=== PATIENT | female | born 1955 | race Caucasian/White ===

== ENCOUNTER 2017-10-04 20:02 | Inpatient (IN) ==
[2017-10-05] MEDS ORDERED: Naloxone 0.4 MG/ML INJ IVP PRN (03:50)
[2017-10-05] MEDS: Ipratropium/Albuterol Neb 3 ML IH SCH ×4 (04:58→22:00)
[2017-10-05] MEDS: *HR* Heparin 5,000 UNIT/ML VIAL SQ SCH ×2 (05:41→18:20)
[2017-10-05 06:28] LABS: Basophils % 0.3 %; Hematocrit 44.3 % (35.3-44.9); Hemoglobin 14.4 g/dL (11.5-15.4); Immature Granulocytes % 0.9 % (0-4); Immature Platelets 7.8 % (1.1-6.1); Lymphocytes # 1.4 K/mcL (0.6-4.6); Lymphocytes % 18.6 %; Mean Corpuscular HGB Conc 32.5 g/dL (31.6-35.5); Mean Corpuscular Hemoglobin 31.2 pg (28.0-33.3); Mean Corpuscular Volume 95.9 fL (83.0-100.0); Mean Platelet Volume 11.2 fL (9.4-12.4); Monocytes # 0.5 K/mcL (0.0-1.3); Monocytes % 7.2 %; Neutrophils # 5.5 K/mcL (1.6-8.9); Platelet Count 196 K/mcL (140-400); Red Blood Count 4.62 M/mcL (3.82-4.97); Red Cell Distribution Width 15.5 % (11.5-14.5)
[2017-10-05 06:44] LABS: Alanine Aminotransferase 11 Units/L (7-52); Albumin 3.6 g/dL (3.5-5.7); Albumin/Globulin Ratio 1.3 (1.1-2.2); Alkaline Phosphatase 78 Units/L (34-104); Aspartate Amino Transferase 16 Units/L (13-39); BUN/Creatinine Ratio 29 (6-26); Bilirubin,Total 0.4 mg/dL (0.3-1.0); Blood Urea Nitrogen 26 mg/dL (8-23); Calcium 8.5 mg/dL (8.6-10.3); Carbon Dioxide 16 mEq/L (23-29); Chloride 110 mEq/L (98-107); Globulin 2.8 g/dL (2.4-3.5); Glucose 109 mg/dL (70-105); Osmolality,Calculated 289 (280-300); Potassium 3.8 mEq/L (3.5-5.1); Sodium 137 mEq/L (136-145); Total Protein 6.4 g/dL (6.4-8.9); eGFR For African Americans > 60 (> 60); eGFR For Non-African Americans > 60 (> 60)
--- NOTE | 2017-10-05 07:05 | Internal Med History&Physical ---
Date of Encounter: 10/05/17 Time of Encounter: 03:00 Internal Medicine - H&P: HPI Chief complaint: Pericardial effusion Admitted From: Home Plans for Post Hospital Care: Home History of present illness: Ms. Novak is a 62 year old female Patient presented to the emergency room transferred from [place] emergency room after discovering on a CT scan small pericardial effusion about 2.2 cm with no evidence of heart strain. She initially presented to ER because she is feeling increased short of breath, with worsening swelling in her legs. After initial lab work showed negative troponin and it BNP 1364, d-dimer was elevated to 770. CT scan was ordered at that point showing no PE but a 2.2 cm pericardial effusion. His transfer to our hospital for further evaluation and management. Of note her home oxygen requirement is 4 L and she is maintaining saturation on 4 L greater than 95% here. She is a former smoker as well. She denies Fever, chills, nausea, vomiting, and chest pain. Past Med Surg Social Fam HX - Past Medical History Medical history: arthritis, atrial fibrillation, cancer, COPD, GERD, hypertension Additional medical history: lung cancer Psychiatric history: anxiety, depression, panic disorder - Past Surgical History Surgical History: cataract, cholecystectomy Additional surgical history: TONSILLECTOMY. TEETH EXTRACTION. BREAST REDUCTION. lung surgery to remove cancer - Social History Smoking Status: Former smoker Smokeless Tobacco Status: No Alcohol use: none Drug use: none Internal Medicine - H&P: Meds Loratadine [Allergy Relief] 10 mg PO DAILY 07/16/16 [History] Aspirin 81 mg PO DAILY 04/04/17 [History] Cyclobenzaprine [Flexeril] 10 mg PO TID 04/04/17 [History] Metoprolol [Lopressor] 12.5 mg PO BID 04/04/17 [History] Pravastatin Sodium [Pravachol] 20 mg PO DAILY 04/04/17 [History] Topiramate [Topamax] 100 mg PO BID 04/04/17 [History] Lisinopril [Zestril] 10 mg PO DAILY 10/04/17 [History] Albuterol Sulfate [Ventolin Hfa] 2 puff IH Q4H PRN 10/05/17 [History] Gabapentin [Neurontin] 400 mg PO TID 10/05/17 [History] Ibuprofen [Ibu] 800 mg PO TID 10/05/17 [History] Montelukast [Singulair] 10 mg PO DAILY 10/05/17 [History] Omeprazole [PriLOSEC] 20 mg PO DAILY 10/05/17 [History] 3 Allergy/AdvReac Type Severity Reaction Status Date / Time acetaminophen AdvReac Hallucinati Verified 04/04/17 17:06 [From Darvocet-N] ng azithromycin [From Zithromax] AdvReac Rash Verified 04/07/17 07:54 duloxetine [From Cymbalta] AdvReac Nausea Verified 04/04/17 17:06 fentanyl AdvReac Vomiting Verified 04/04/17 17:06 propoxyphene AdvReac Hallucinati Verified 04/04/17 17:06 [From Darvocet-N] ng Sulfa (Sulfonamide AdvReac Rash Verified 04/04/17 17:06 Antibiotics) Tetracycline AdvReac Nausea Verified 04/04/17 17:06 All Systems PM: A 10-system review of systems was performed and is negative for pertinent findings except as documented above in the HPI. - Constitutional Vitals: Temp Pulse Resp BP Pulse Ox 95.8 F L 91 16 128/85 92 10/05/17 04:04 10/05/17 04:04 10/05/17 04:58 10/05/17 04:04 10/05/17 04:58 General appearance: Present: mild distress, A&O X 3 - Head Head exam: Present: normal inspection - Eye Eye exam: Present: EOMI - Respiratory Respiratory exam: Present: rales, respiratory distress. Absent: accessory muscle use - Cardiovascular Cardiovascular exam: Present: RRR. Absent: diastolic murmur, systolic murmur Additional comments: Heart sounds heard and no murmurs heart sounds did not seem distant despite the pericardial effusion - GI/Abdominal GI/Abdominal exam: Present: normal bowel sounds. Absent: firm, tenderness - Extremities Exam Extremities exam: Present: warm, radial pulses palpable and symmetrical. Absent : tenderness - Neurological Exam Neurological exam: Present: oriented X3. Absent: motor sensory deficit, speech deficit - Skin Skin exam: Present: dry, normal color, warm Internal Med - H&P Results - Labs CBC & Chem 7: 10/05/17 05:31 10/05/17 05:31 Labs: Short CBC 06/20/18 Range/Units 05:31 WBC 7.5 (4.3-11.1) K/mcL Hgb 14.4 (11.5-15.4) g/dL Hct 44.3 (35.3-44.9) % Plt Count 196 (140-400) K/mcL Neutrophils # 5.5 (1.6-8.9) K/mcL BMP 10/05/17 05:31 Sodium 137 Potassium 3.8 Chloride 110 H Carbon Dioxide 16 L BUN 26 H Creatinine 0.90 Glucose 109 H Calcium 8.5 L Liver Function 10/05/17 Range/Units 05:31 Total Bilirubin 0.4 (0.3-1.0) mg/dL AST 16 (13-39) Units/L ALT 11 (7-52) Units/L Alkaline Phosphatase 78 (34-104) Units/L Albumin 3.6 (3.5-5.7) g/dL - Assessment and plan (1) COPD exacerbation Current Visit: No Status: Acute Assessment and plan: Patient is a former smoker and has worsening breathing the last 2 days to weeks. She has had a COPD exacerbation in the past she uses oxygen at home currently she is on 4 L and saturating at 94%. Oral Prednisone 40mg for 5 days Breathing treatments with DuoNeb nebs and albuterol Check urine antigens Azithromycin contraindicated due to patient allergy, but might have been beneficial as an anti-inflammatory. (2) Shortness of breath Current Visit: Yes Status: Acute Assessment and plan: likely secondary to COPD exacerbation. Treatment as above. (3) Pericardial effusion Current Visit: No Status: Acute Assessment and plan: As seen on chest CT, measuring 2.2 cm, with no evidence of heart strain. Likely exacerbated by congestive heart failure. Cardiology consult Echocardiogram in AM (4) Elevated brain natriuretic peptide (BNP) level Current Visit: Yes Status: Acute Assessment and plan: Patient's BNP was 1364, she has no previous history of congestive heart failure. Could be related to pericardial effusion, as well as COPD exacerbation. Continue to monitor her oxygen level. Cardiology consult Echocardiogram in AM Anticipate improvement with treatment of COPD exacerbation and pericardial effusion. (5) Hypothermia Current Visit: Yes Status: Acute Assessment and plan: Patient states her normal blood pressure is in the low 96 degrees range, however upon arrival to our facility thermometer indicated her body temperature closer to 92-93. Blankets and taniya-hugger warm air blanket was applied. Patient denies feeling cold, and her temperature was consistent with another thermometer. On exam she did not feel cold to touch. Continue to monitor Continue blankets and Taniya hugger. Qualifiers: Qualified Code(s): T68.XXXA - Hypothermia, initial encounter (6) Hypertension Current Visit: No Status: Chronic Assessment and plan: Chronic continue home medications. Qualifiers: Hypertension type: essential hypertension Qualified Code(s): I10 - Essential (primary) hypertension (7) Hyperlipidemia Current Visit: Yes Status: Acute Assessment and plan: Chronic, continue home meds. Qualifiers: Qualified Code(s): E78.5 - Hyperlipidemia, unspecified - Time Spent With Patient Total time spent is greater than 50% in coordination of care (as documented) at patient's floor/unit and/or counseling patient: Greater than 35 minutes
--- NOTE | 2017-10-05 07:48 | Event Note ---
Date of Encounter: 10/05/17 Time of Encounter: 07:40 Seen and assessed. agree with plan per night time hospitalist. Admitted for shortness of breath and pleural effusion. Continue nebs for COPD, lasix for CHF. F/U 2D echo for pleural effusion. F/U cardiology recs
[2017-10-05] MEDS ORDERED: Furosemide 20 MG/2 ML VIAL IVP SCH (08:00)
[2017-10-05] MEDS ORDERED: Ibuprofen 600 MG TABLET PO PRN (08:03)
[2017-10-05] MEDS ORDERED: Furosemide 40 MG/4 ML VIAL IVP SCH (09:00)
[2017-10-05] MEDS ORDERED: Azithromycin 500 MG in D5% in Water 250 ML IVPB SCH (09:00)
[2017-10-05] MEDS ORDERED: predniSONE 20 MG TABLET PO SCH (09:00)
[2017-10-05] MEDS ORDERED: Levofloxacin 500 MG/100 ML 500 MG/100 ML BAG IVPB SCH (09:00)
[2017-10-05] MEDS: MethylPREDNISolone 40 MG/ML VIAL IVP SCH ×2 (09:13→15:30)
[2017-10-05] MEDS: Gabapentin 400 MG CAPSULE PO SCH ×3 (09:13→22:03)
--- NOTE | 2017-10-05 09:52 | Cardiology Consult Note ---
<Phil Cisneros - Last Filed: 10/05/17 10:27> Date of Encounter: 10/05/17 Time of Encounter: 09:52 Assessment and Plan (1) Elevated brain natriuretic peptide (BNP) level Current Visit: Yes Status: Acute BNP 1364. Presented with worsening dyspnea and LE edema. CXR did not show any CHF or pleural effusions. Chest CTA showed pericardial effusion 2.2cm--often overestimated on CT scans. No prior echo on file. Will obtain TTE to evaluate structure and function and determine if pt has any systolic or diastolic dysfunction noted. Continue IV Lasix 40mg BID. Strict I/Os, Na and fluid restriction, daily weights. Currently being treated for COPD exacerbation as well. Continue to follow until echo results and will make further recs at that time. (2) Pericardial effusion Current Visit: Yes Status: Acute Pericardial effusion 2.[address] Echo to better evaluate size of pericardial effusion. Recommendations pending echo results. BP borderline, but currently appears stable. (3) PAF (paroxysmal atrial fibrillation) Current Visit: Yes Status: Acute Reports hx of A-Fib and states she was started on Xarelto during hospital stay in March. Stopped taking Xarelto due to blood tinged sputum when she would have a productive cough. Upon review, I am unable to locate any EKGs showing pt in A-Fib. All EKGs show SR. Currently SR as well. [id number] is 2 (HTN, Female). Given lack of confirmation of A-Fib, recommend continuing ASA for now. If has episode of documented A-Fib, would then recommend resuming group home anticoagulation. Discussion w patient/family: The assessment and plan as outlined above was discussed with the patient and/or family members who expressed understanding and agreement. All questions were answered. Thank you for involving us in the care of your patient. Please call with any questions. I will discuss all the above with Dr. Hernandez and make changes as necessary. History of Present Illness Consult date: 10/05/17 Consult reason: CHF Chief complaint: Dyspnea, LE edema History of present illness: Ms. Novak is a 62 year old female with PMH of lung cancer s/p resection 3 years ago, COPD on 4L home O2, prior tobacco abuse, GERD, PAF previously on Xarelto that presented to ED as a transfer from [place]. She presented for progressive worsening dyspnea ongoing for the past 6 months, but new onset of LE edema in recent days, left > right. Chest CT showed a pericardial effusion 2.2 cm with no evidence of heart strain. BNP 1364. CXR no pleural effusions. Pt reports she stopped taking Xarelto last month due to blood tinged sputum when she would experience productive cough. She reports chest pain with radiation to bilateral arms, jaw, back and neck, but that it only occurs when coughing. Nonexertional. Troponin negative x 1. Cardiology consulted for further recs. She has been diagnosed with COPD exacerbation and is being treated. Has also been started on IV Lasix 40mg BID. Past Med Surg Social Fam HX - Past Medical History Medical history: arthritis, atrial fibrillation, cancer, COPD, GERD, hypertension Additional medical history: lung cancer Psychiatric history: anxiety, depression, panic disorder - Past Surgical History Surgical History: cataract, cholecystectomy Additional surgical history: TONSILLECTOMY. TEETH EXTRACTION. BREAST REDUCTION. lung surgery to remove cancer - Social History Smoking Status: Former smoker Smokeless Tobacco Status: No Alcohol use: none Drug use: none Medications and Allergies Loratadine [Allergy Relief] 10 mg PO DAILY 07/16/16 [History] Aspirin 81 mg PO DAILY 04/04/17 [History] Cyclobenzaprine [Flexeril] 10 mg PO TID 04/04/17 [History] Metoprolol [Lopressor] 12.5 mg PO BID 04/04/17 [History] Pravastatin Sodium [Pravachol] 20 mg PO DAILY 04/04/17 [History] Topiramate [Topamax] 100 mg PO BID 04/04/17 [History] Lisinopril [Zestril] 10 mg PO DAILY 10/04/17 [History] Albuterol Sulfate [Ventolin Hfa] 2 puff IH Q4H PRN 10/05/17 [History] Gabapentin [Neurontin] 400 mg PO TID 10/05/17 [History] Ibuprofen [Ibu] 800 mg PO TID 10/05/17 [History] Montelukast [Singulair] 10 mg PO DAILY 10/05/17 [History] Omeprazole [PriLOSEC] 20 mg PO DAILY 10/05/17 [History] 3 Allergy/AdvReac Type Severity Reaction Status Date / Time acetaminophen AdvReac Hallucinati Verified 04/04/17 17:06 [From Darvocet-N] ng azithromycin [From Zithromax] AdvReac Rash Verified 04/07/17 07:54 duloxetine [From Cymbalta] AdvReac Nausea Verified 04/04/17 17:06 fentanyl AdvReac Vomiting Verified 04/04/17 17:06 propoxyphene AdvReac Hallucinati Verified 04/04/17 17:06 [From Darvocet-N] ng Sulfa (Sulfonamide AdvReac Rash Verified 04/04/17 17:06 Antibiotics) Tetracycline AdvReac Nausea Verified 04/04/17 17:06 All Systems Review: The remainder of the systems were reviewed and are negative - Cardiovascular Cardiovascular: as per HPI, chest pain at rest, dyspnea at rest, dyspnea on exertion, radiating jaw, neck or arm pain, leg edema - Respiratory Respiratory: cough, dyspnea Physical Examination Vital Signs, Last 4 Hours Temp Pulse Resp BP Pulse Ox 10/05/17 07:33 98.4 F 96 17 99/63 91 Vital Signs Temp Pulse Resp BP Pulse Ox 10/05/17 07:33 98.4 F 96 17 99/63 91 10/05/17 04:58 16 92 10/05/17 04:04 95.8 F L 91 16 128/85 96 10/04/17 22:52 92.9 F L 86 16 97/60 94 10/04/17 22:29 94.1 F L Intake and Output 10/04/17 10/05/17 10/05/17 23:59 07:59 15:59 Intake Total 120 / 120 240 / 240 Output Total 200 / 200 Balance 120 / 120 40 / 40 Intake: Oral 120 / 120 240 / 240 Output: Urine 200 / 200 Other: Meal Breakfast Percent of Meal Consumed 50% # Voids 1 Weight 70.5 kg General: Conversant, No Apparent Distress HEENT: Atraumatic, Normocephaly, Mucus Membranes Moist Neck: Normal carotid pulses Cardiac: Reg Rate and Rhythm, Normal S1 and S2, No Murmur Lungs: Other (diminished) Neuro: Alert and responsive, No focal deficits noted Abdomen: Soft, Non-Tender Skin: No rashes noted on visualized skin Musculoskeletal: No Chest Wall Tenderness Extremities: No Clubbing, No Cyanosis, No Edema, Normal Pulses Results 10/05/17 05:31 10/05/17 05:31 Lab Results 10/05/17 10/05/17 05:31 05:31 WBC 7.5 Hgb 14.4 Hct 44.3 Plt Count 196 Sodium 137 Potassium 3.8 Chloride 110 H Carbon Dioxide 16 L BUN 26 H Creatinine 0.90 Glucose 109 H Calcium 8.5 L Total Bilirubin 0.4 AST 16 ALT 11 Alkaline Phosphatase 78 Short CBC 10/05/17 Range/Units 05:31 WBC 7.5 (4.3-11.1) K/mcL Hgb 14.4 (11.5-15.4) g/dL Hct 44.3 (35.3-44.9) % Plt Count 196 (140-400) K/mcL Neutrophils # 5.5 (1.6-8.9) K/mcL BMP 10/05/17 Range/Units 05:31 Sodium 137 (136-145) mEq/L Potassium 3.8 (3.5-5.1) mEq/L Chloride 110 H (98-107) mEq/L Carbon Dioxide 16 L (23-29) mEq/L BUN 26 H (8-23) mg/dL Creatinine 0.90 (0.60-1.20) mg/dL Glucose 109 H (70-105) mg/dL Calcium 8.5 L (8.6-10.3) mg/dL Liver Function 10/05/17 Range/Units 05:31 Total Bilirubin 0.4 (0.3-1.0) mg/dL AST 16 (13-39) Units/L ALT 11 (7-52) Units/L Alkaline Phosphatase 78 (34-104) Units/L Albumin 3.6 (3.5-5.7) g/dL Active Medications Albuterol Sulfate (Albuterol Inhaler) 2 puff IH Q4HR PRN PRN Reason: Shortness Of Breath/Wheezing Stop: 04/06/18 03:41 Albuterol/Ipratropium (Duoneb) 3 ml IH QIDR ANNAMARIA Stop: 04/06/18 05:01 Last Admin: 10/05/17 04:58 Dose: 3 ml Furosemide (Lasix) 40 mg IVP BIDDIURETIC ANNAMARIA Stop: 04/06/18 09:01 Last Admin: 10/05/17 09:12 Dose: 40 mg Gabapentin (Neurontin) 400 mg PO TID ANNAMARIA Stop: 04/06/18 09:01 Last Admin: 10/05/17 09:13 Dose: 400 mg Heparin Sodium (Porcine) (Heparin) 5,000 unit SQ Q12HR ANNAMARIA Stop: 04/06/18 06:01 Last Admin: 10/05/17 05:41 Dose: 5,000 unit Levofloxacin/Dextrose (Levaquin Premix 500mg/100ml) 500 mg in 100 mls @ 100 mls /hr IVPB Q24H ANNAMARIA PRN Reason: Protocol Stop: 04/06/18 09:01 Last Admin: 10/05/17 09:13 Dose: 100 mls/hr Ibuprofen (Motrin) 800 mg PO TID PRN; Protocol PRN Reason: Pain Stop: 04/06/18 08:04 Methylprednisolone (Solu-Medrol) 40 mg IVP Q8HR ANNAMARIA Stop: 04/06/18 09:01 Last Admin: 10/05/17 09:13 Dose: 40 mg Naloxone HCl (Narcan) 0.4 mg IVP Q2MIN PRN PRN Reason: SEE COMMENTS Stop: 04/06/18 03:51 - EKG Interpretation EKG results cardiology: personally reviewed (SR) Consult Discharge Plan - Plan Referrals: Shruthi Plascencia, JUAN DAVID [Primary Care Provider] - <[email or web address] - Last Filed: 10/05/17 12:55> Date of Encounter: 10/05/17 - Attending Attestation I examined this patient and my medical decision-making was reviewed with the Resident Physician. I agree with the documented findings, disposition and treatment plan. Ms. Novak presents with worsening dyspnea over the last 6 months but now with LE edema. She was ultimately transferred from [facility] for a pericardial effusion seen on CT scan. At the bedside, the patient appears comfortable in no acute distress. She is sitting up watching Facebook on her phone. Blood pressures are borderline but this is not new. She is not hypoxic on oxygen at home. Recommend performing an echo for further evaluation. There does not appear to be any clinical signs of impending tamponade. Recommend cautious use of lasix in this setting. Otherwise reports history of atrial fibrillation in March 2017 when she was started on Xarelto. However, we have found no data documenting demonstration of AFIB at that time. She is currently in NSR. She stopped xarelto on her own a month ago due to blood tinged sputum. Recommend aspirin for now. If there's documentation of AFIB, would consider use of anticoagulants (CHADSVASC 2). Assessment and Plan Discussion w patient/family: The assessment and plan as outlined above was discussed with the patient and/or family members who expressed understanding and agreement. All questions were answered. Thank you for involving us in the care of your patient. Please call with any questions. History of Present Illness History of present illness: Ms. Novak is a 62 year old female All Systems Review: The remainder of the systems were reviewed and are negative Physical Examination Vital Signs, Last 4 Hours Temp Pulse Resp BP Pulse Ox 10/05/17 11:04 18 96 10/05/17 10:49 97.4 F L 98 18 117/76 93 Results 10/05/17 05:31 10/05/17 05:31 Lab Results 10/05/17 10/05/17 05:31 05:31 WBC 7.5 Hgb 14.4 Hct 44.3 Plt Count 196 Sodium 137 Potassium 3.8 Chloride 110 H Carbon Dioxide 16 L BUN 26 H Creatinine 0.90 Glucose 109 H Calcium 8.5 L Total Bilirubin 0.4 AST 16 ALT 11 Alkaline Phosphatase 78
[2017-10-05] MEDS: Loratadine 10 MG TABLET PO SCH (12:07)
--- NOTE | 2017-10-05 13:11 | Internal Med Progress Note ---
Date of Encounter: 10/05/17 Time of Encounter: 13:08 - Assessment and plan (1) COPD exacerbation Current Visit: No Status: Acute Assessment and plan: History of COPD. Former smoker, has worsening shortness of breath over the last 2 weeks. Requires high flow oxygen at home. 4 L nasal cannula at baseline. Also history of lung cancer status post lobectomy. Continue aerosols and IV steroids. Respiratory support when necessary per nasal cannula. CTA chest and chest x-ray with no obvious acute pulmonary process (2) Pericardial effusion Current Visit: Yes Status: Acute Assessment and plan: CTA chest with findings of pericardial effusion 2.2 cm CXR did not show CHF or pleural effusions No prior TTE's, obtain TTE today to evaluate for structural abnormalities and assess for systolic/diastolic dysfunction Continue IV Lasix 40 mg twice a day Strict I's and O's Sodium restriction Fluid restriction 1.5 L daily Daily weights Cardiology following consultation, per sheet recommendations (3) Volume overload Current Visit: Yes Status: Acute Assessment and plan: Presents with volume overload 2 week history of dyspnea, weight gain and bilateral lower extremity swelling 1+ pitting edema bilateral lower extremities BNP elevated at 1364 Chest x-ray did not show any CHF or pleural effusions Continue to treat with IV diuretics TTE now-results pending See further planning above Qualifiers: Hypervolemia type: unspecified Qualified Code(s): E87.70 - Fluid overload, unspecified (4) Shortness of breath Current Visit: Yes Status: Acute Assessment and plan: See above (5) Hypothermia Current Visit: Yes Status: Acute Assessment and plan: Improving Continue to monitor closely Qualifiers: Qualified Code(s): T68.XXXA - Hypothermia, initial encounter (6) Hypertension Current Visit: No Status: Chronic Assessment and plan: History of HTN. BP stable today. Qualifiers: Hypertension type: essential hypertension Qualified Code(s): I10 - Essential (primary) hypertension (7) PAF (paroxysmal atrial fibrillation) Current Visit: Yes Status: Acute Assessment and plan: Paroxysmal A. fib reported per patient Unable to find initial diagnosis of A. fib on chart As patient on Xarelto in the past. Stopped Due to blood-tinged sputum Cardiology seeing in consultation-recommend continuing aspirin for now (8) DVT prophylaxis Current Visit: Yes Status: Acute Assessment and plan: SQ heparin - Time Spent With Patient Total time spent is greater than 50% in coordination of care (as documented) at patient's floor/unit and/or counseling patient: Greater than 35 minutes - Subjective Interval history: Patient seen and examined at bedside today. No acute changes. Continue to have shortness of breath. Shortness of breath is markedly worsened with activity. He is reporting that her story swelling is improving. Denies any chest pain or discomfort with breathing. Has conversational dyspnea. - Constitutional Vitals: Temp Pulse Resp BP Pulse Ox 97.4 F L 98 18 117/76 96 10/05/17 10:49 10/05/17 10:49 10/05/17 11:04 10/05/17 10:49 10/05/17 11:04 General appearance: Present: mild distress, A&O X 3, answers questions appropriately - Head Head exam: Present: atraumatic, normocephalic - Eye Eye exam: Present: EOMI, PERRL, conjuntiva pink, sclera anicteric Pupils: Present: PERRL - Neck Neck exam general surgery: Present: supple, trachea midline. Absent: lymphadenopathy - Respiratory Respiratory exam: Present: accessory muscle use, decreased breath sounds, rales , tachypnea. Absent: chest wall tenderness, rhonchi, wheezes - Cardiovascular Cardiovascular exam: Present: irregular rhythm, +S1, +S2. Absent: diastolic murmur, gallop, rubs, systolic murmur - GI/Abdominal GI/Abdominal exam: Present: normal bowel sounds, soft, no peritoneal signs. Absent: distended, tenderness - Extremities Exam Extremities exam: Present: warm, radial pulses palpable and symmetrical. Absent : calf tenderness, cyanotic, pedal edema - Neurological Exam Neurological exam: Present: alert, CN II-XII intact, oriented X3, no focal deficits. Absent: pronater drift, facial droop, speech deficit - Skin Skin exam: Present: dry, intact Internal Medicine: Result - Labs CBC & Chem 7: 10/05/17 05:31 10/05/17 05:31 Labs: Short CBC 10/05/17 Range/Units 05:31 WBC 7.5 (4.3-11.1) K/mcL Hgb 14.4 (11.5-15.4) g/dL Hct 44.3 (35.3-44.9) % Plt Count 196 (140-400) K/mcL Neutrophils # 5.5 (1.6-8.9) K/mcL BMP 10/05/17 05:31 Sodium 137 Potassium 3.8 Chloride 110 H Carbon Dioxide 16 L BUN 26 H Creatinine 0.90 Glucose 109 H Calcium 8.5 L Liver Function 10/05/17 Range/Units 05:31 Total Bilirubin 0.4 (0.3-1.0) mg/dL AST 16 (13-39) Units/L ALT 11 (7-52) Units/L Alkaline Phosphatase 78 (34-104) Units/L Albumin 3.6 (3.5-5.7) g/dL Consult Discharge Plan - Plan Referrals: Shruthi Plascencia, [facility] [Primary Care Provider] -
--- NOTE | 2017-10-05 15:49 | Event Note ---
Date of Encounter: 10/05/17 Time of Encounter: 15:46 - Cardiology Event Note Echo resulted. LVEF 65%. Normal LV chamber size, wall thickness and function. Mild LVDD. Flattened interventricular septum suggestive of RV pressure-volume overload. Mild to moderately dilated right ventricle with mildly reduced function. Mild TR. Severe pulmonary hypertension. Estimated RVSP is 77-82 mmHg. There is a circumferential pericardial effusion present, which is large along the inferolateral and lateral segments of the LV and small anteriorly. There is no echocardiographic evidence of tamponade. Findings consistent with right sided heart failure. Chest CTA negative for PE. Large pericardial effusion, no evidence of tamponade. Discussed with Dr. Hernandez. Gentle diuresis. Received IV Lasix 40mg this AM. Will order another dose for tomorrow AM. Re-evaluate pt in AM. Plan for Limited TTE Saturday 10/07 to re-evaluate pericardial effusion, or sooner if clinically indicated.
[2017-10-05] MEDS: Ibuprofen 600 MG TABLET PO PRN (22:03)
[2017-10-05] MEDS: Topiramate 100 MG TABLET PO SCH (22:04)
[2017-10-06] MEDS: MethylPREDNISolone 40 MG/ML VIAL IVP SCH ×4 (00:28→23:55)
[2017-10-06] MEDS: Ipratropium/Albuterol Neb 3 ML IH SCH ×4 (04:13→22:48)
[2017-10-06] MEDS: *HR* Heparin 5,000 UNIT/ML VIAL SQ SCH ×2 (05:05→17:10)
[2017-10-06 07:07] LABS: Basophils % 0.1 %; Hematocrit 43.4 % (35.3-44.9); Hemoglobin 13.6 g/dL (11.5-15.4); Immature Granulocytes % 0.5 % (0-4); Lymphocytes # 0.7 K/mcL (0.6-4.6); Lymphocytes % 8.5 %; Mean Corpuscular HGB Conc 31.3 g/dL (31.6-35.5); Mean Corpuscular Hemoglobin 30.8 pg (28.0-33.3); Mean Corpuscular Volume 98.4 fL (83.0-100.0); Mean Platelet Volume 11.3 fL (9.4-12.4); Monocytes # 0.4 K/mcL (0.0-1.3); Monocytes % 4.6 %; Neutrophils # 6.7 K/mcL (1.6-8.9); Platelet Count 163 K/mcL (140-400); Red Blood Count 4.41 M/mcL (3.82-4.97); Red Cell Distribution Width 15.6 % (11.5-14.5); Segmented Neutrophils % 86.3 %
[2017-10-06 07:20] LABS: BUN/Creatinine Ratio 33 (6-26); Blood Urea Nitrogen 31 mg/dL (8-23); Calcium 8.8 mg/dL (8.6-10.3); Carbon Dioxide 25 mEq/L (23-29); Chloride 108 mEq/L (98-107); Glucose 140 mg/dL (70-105); Osmolality,Calculated 297 (280-300); Potassium 3.9 mEq/L (3.5-5.1); Sodium 139 mEq/L (136-145); eGFR For African Americans > 60 (> 60); eGFR For Non-African Americans 60 (> 60)
[2017-10-06] MEDS ORDERED: Furosemide 40 MG/4 ML VIAL IVP ONE (08:00)
[2017-10-06] MEDS: Loratadine 10 MG TABLET PO SCH (08:26)
[2017-10-06] MEDS: Aspirin 81 MG TAB.CHEW PO SCH (08:26)
[2017-10-06] MEDS: Gabapentin 400 MG CAPSULE PO SCH ×3 (08:27→21:27)
[2017-10-06] MEDS: Topiramate 100 MG TABLET PO SCH ×2 (08:32→21:27)
[2017-10-06] MEDS: Ibuprofen 600 MG TABLET PO PRN ×3 (08:41→21:27)
--- NOTE | 2017-10-06 08:59 | Cardiology Progress Note ---
Date of Encounter: 10/06/17 Time of Encounter: 08:00 Assessment and Plan (1) Elevated brain natriuretic peptide (BNP) level Current Visit: Yes Status: Acute *er cardiology: -BNP 1364. Presented with worsening dyspnea and LE edema. -CXR did not show any CHF or pleural effusions. Chest CTA showed pericardial effusion 2.2cm--often overestimated on CT scans. -Echo resulted. LVEF 65%. Normal LV chamber size, wall thickness and function. Mild LVDD. Flattened interventricular septum suggestive of RV pressure-volume overload. Mild to moderately dilated right ventricle with mildly reduced function. Mild TR. Severe pulmonary hypertension. Estimated RVSP is 77-82 mmHg. There is a circumferential pericardial effusion present, which is large along the inferolateral and lateral segments of the LV and small anteriorly. There is no echocardiographic evidence of tamponade. -Findings consistent with right sided heart failure. Chest CTA negative for PE. Large pericardial effusion, no evidence of tamponade. Discussed with Dr. Hernandez. Gentle diuresis. Received IV Lasix 40mg this AM. Will order another dose for tomorrow AM. -Currently net negative 900ml. -Reports shortness of breath and edema improvement. -IV lasix today. -Ban signs stable, not in any acute distress. - Strict I/Os, Na and fluid restriction, daily weights. -Plan for Limited TTE Saturday 10/07 to re-evaluate pericardial effusion, or sooner if clinically indicated. (2) Pericardial effusion Current Visit: Yes Status: Acute Per cardiology: -Pericardial effusion 2.[address] -TTE as above. -Not in any acute distress. Vital signs stable. -Again, plan to repeat limited TTE in am, as above. (3) PAF (paroxysmal atrial fibrillation) Current Visit: Yes Status: Acute Per cardiololgy: -Reports hx of A-Fib and states she was started on Xarelto during hospital stay in March. Stopped taking Xarelto due to blood tinged sputum when she would have a productive cough. -Upon review, I am unable to locate any EKGs showing pt in A-Fib. All EKGs show SR. Currently SR as well. -[id number] is 2 (HTN, Female). Given lack of confirmation of A-Fib, recommend continuing ASA for now. 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 -Telemetry reviewed with no evidence of a.fib overnight, -Will continue to monitor. Discussion w patient/family: The assessment and plan as outlined above was discussed with the patient who expressed understanding and agreement. All questions were answered. Thank you for involving us in the care of your patient. Please call with any questions. Discussed and reviewed with . Subjective Principal diagnosis: pericardial effusion/COPD exacerbation Interval history: Patient reports edema is improved today. Reports breathing is about her baseline. Denies chest pain. Objective Vital Signs, Last 4 Hours Temp Pulse Resp BP Pulse Ox 10/06/17 07:07 97.6 F 81 14 104/70 97 General: Conversant, Other (Conversational dyspnea noted. ) HEENT: Atraumatic, Normocephaly, Mucus Membranes Moist Neck: No JVD, Normal carotid pulses Cardiac: Reg Rate and Rhythm, Normal S1 and S2, No Murmur Lungs: Normal Breath Sounds, No Wheeze, Rales, Rhonchi Neuro: Alert and responsive, No focal deficits noted Abdomen: Soft, Non-Tender Skin: No rashes noted on visualized skin Musculoskeletal: No Chest Wall Tenderness Extremities: No Clubbing, No Cyanosis, Normal Pulses, Other (Mild bilateral pedal edema noted. ) Results 10/06/17 06:32 10/06/17 06:32 Lab Results Impressions Echocardiogram 10/05/17 07:23 Impressions: LVEF 65%. Normal LV chamber size, wall thickness and function. Mild left ventricular diastolic dysfunction. Flattened interventricular septum suggestive of RV pressure-volume overload. Mild to moderately dilated right ventricle with mildly reduced function. Mild tricuspid regurgitation. Severe pulmonary hypertension. Estimated RVSP is 77-82 mmHg. There is a circumferential pericardial effusion present, which is large along the inferolateral and lateral segments of the LV and small anteriorly. There is no echocardiographic evidence of tamponade. Recommend a repeat study as clinically indicated. Left Ventricular Wall Motion: Rest Echo Findings All wall segments showed normal motion. Findings: Study Quality * Technically adequate exam. ECG Findings * Normal sinus rhythm. Left Ventricle * LVEF 65%. * Normal LV chamber size, wall thickness and function. * Mild left ventricular diastolic dysfunction. * Flattened interventricular septum suggestive of RV pressure-volume overload. Right Ventricle * Mildly dilated right ventricle with mildly reduced function. Left Atrium * Mildly dilated left atrium. Right Atrium * Severely dilated right atrium. Aortic Valve * Trileaflet aortic valve. * Mildly sclerotic aortic valve leaflets. * No aortic regurgitation. * No aortic stenosis. Mitral Valve * Normal mitral valve structure and function. * No mitral regurgitation. * No mitral stenosis. Tricuspid Valve * Normal tricuspid valve structure. * Mild tricuspid regurgitation. * Severe pulmonary hypertension. * Estimated RVSP is 77-82 mmHg. * Estimated RA pressure is 5-10 mmHg. Pulmonic Valve * Normal pulmonic valve structure and function. * No pulmonic regurgitation. Aorta * Normally sized aortic root. Pericardium * There is a circumferential pericardial effusion present, which is large along the inferolateral and lateral segments of the LV. It is small anteriorly. * There is no echocardiographic evidence of tamponade. IVC * The IVC is not dilated. * < 50% respiratory change. Pulmonary Artery * Normal visualized portions of the main pulmonary artery. * Pulmonary artery not well visualized. Active Medications Albuterol Sulfate (Albuterol Inhaler) 2 puff IH Q4HR PRN PRN Reason: Shortness Of Breath/Wheezing Stop: 04/06/18 03:41 Albuterol/Ipratropium (Duoneb) 3 ml IH QIDR [facility] Stop: 04/06/18 05:01 Last Admin: 10/06/17 04:13 Dose: 3 ml Aspirin (Aspirin) 81 mg PO DAILY [facility] Stop: 04/07/18 09:01 Last Admin: 10/06/17 08:26 Dose: 81 mg Cyclobenzaprine HCl (Flexeril) 10 mg PO TID [facility] Stop: 04/06/18 15:01 Last Admin: 10/06/17 08:26 Dose: 10 mg Gabapentin (Neurontin) 400 mg PO TID [facility] Stop: 04/06/18 09:01 Last Admin: 10/06/17 08:27 Dose: 400 mg Heparin Sodium (Porcine) (Heparin) 5,000 unit SQ Q12HR [facility] Stop: 04/06/18 06:01 Last Admin: 10/06/17 05:05 Dose: 5,000 unit Ibuprofen (Motrin) 800 mg PO TID PRN; Protocol PRN Reason: Pain Stop: 04/06/18 08:04 Last Admin: 10/06/17 08:41 Dose: 800 mg Loratadine (Claritin) 10 mg PO DAILY [facility] PRN Reason: Protocol Stop: 04/06/18 12:01 Last Admin: 10/06/17 08:26 Dose: 10 mg Methylprednisolone (Solu-Medrol) 40 mg IVP Q8HR [facility] Stop: 04/06/18 09:01 Last Admin: 10/06/17 08:27 Dose: 40 mg Montelukast Sodium (Singulair) 10 mg PO DAILY [facility] Stop: 04/06/18 12:01 Last Admin: 10/06/17 08:26 Dose: 10 mg Naloxone HCl (Narcan) 0.4 mg IVP Q2MIN PRN PRN Reason: SEE COMMENTS Stop: 04/06/18 03:51 Omeprazole (Prilosec) 20 mg PO DAILY [facility] PRN Reason: Protocol Stop: 04/06/18 12:01 Last Admin: 10/06/17 08:27 Dose: 20 mg Simvastatin (Zocor) 10 mg PO DAILY [facility] Stop: 04/07/18 09:01 Last Admin: 10/06/17 08:26 Dose: 10 mg Topiramate (Topamax) 100 mg PO BID [facility] Stop: 04/06/18 21:01 Last Admin: 10/06/17 08:32 Dose: 100 mg Laboratory Tests 10/06/17 10/06/17 06:32 06:32 Hgb 13.6 Potassium 3.9 Creatinine 0.94 - Imaging and Cardiology Chest Xray: report reviewed Echo: report reviewed - EKG Interpretation EKG results cardiology: other (Telemetry reviewed with average HR previous 12 hours noted to be 85, SR. PVCs and PACs noted.) Consult Discharge Plan - Plan Referrals: Shruthi Plascencia CNP [Primary Care Provider] -
--- NOTE | 2017-10-06 10:53 | Internal Med Progress Note ---
Date of Encounter: 10/06/17 Time of Encounter: 10:53 - Assessment and plan (1) COPD exacerbation Current Visit: No Status: Acute Assessment and plan: History of COPD, former smoker, partial lobectomy S/P lung cancer, structural lung disease, requires high flow nasal cannula 4 L at baseline Progressive shortness of breath X2 weeks Having cough and wheezing CXR negative for acute process, CTA chest negative for PE or acute process Also reporting BLE swelling and weight gain Found to have fluid overload; treated with IV diuretics Continue aerosols and IV steroids Respiratory support per nasal cannula, titrate when necessary to maintain SPO2 greater than 88% Titrate oxygen to baseline as tolerated When status improves consider PT/OT consult Consult to nurse navigator as patient may benefit from home health (2) Pericardial effusion Current Visit: Yes Status: Acute Assessment and plan: CTA chest with findings of pericardial effusion 2.2 cm CXR did not show CHF or pleural effusions TTE-There is a circumferential pericardial effusion present, which is large along the inferolateral and lateral segments of the LV and small anteriorly. There is no echocardiographic evidence of tamponade. Continue IV Lasix 40 mg twice a day Strict I's and O's Sodium restriction Fluid restriction 1.5 L daily Daily weights Repeat TTE 10/07/17 Cardiology following consultation, appreciate recommendations (3) Volume overload Current Visit: Yes Status: Acute Assessment and plan: Presents with volume overload 2 week history of dyspnea, weight gain and bilateral lower extremity swelling 1+ pitting edema bilateral lower extremities on admission now generalized edema without pitting BNP elevated at 1364 Chest x-ray did not show any CHF or pleural effusions Continue to treat with IV diuretics TTE-LVEF 65%. Normal LV chamber size, wall thickness and function. Mild LVDD. Flattened interventricular septum suggestive of RV pressure-volume overload. Mild to moderately dilated right ventricle with mildly reduced function. Mild TR. Severe pulmonary hypertension. Estimated RVSP is 77-82 mmHg. There is a circumferential pericardial effusion present, which is large along the inferolateral and lateral segments of the LV and small anteriorly. There is no echocardiographic evidence of tamponade. See further planning above Qualifiers: Hypervolemia type: unspecified Qualified Code(s): E87.70 - Fluid overload, unspecified (4) Shortness of breath Current Visit: Yes Status: Acute Assessment and plan: See above (5) Hypothermia Current Visit: Yes Status: Acute Assessment and plan: Improving No episodes of hypothermia for the last 24 hours Continue to monitor closely Qualifiers: Qualified Code(s): T68.XXXA - Hypothermia, initial encounter (6) Hypertension Current Visit: No Status: Chronic Assessment and plan: History of HTN. BP stable today 10/06/17 Not on anti-HTN medications Qualifiers: Hypertension type: essential hypertension Qualified Code(s): I10 - Essential (primary) hypertension (7) PAF (paroxysmal atrial fibrillation) Current Visit: Yes Status: Acute Assessment and plan: Paroxysmal A. fib reported per patient Unable to find official diagnosis of A. fib on chart review No episodes of A. fib overnight patient on Xarelto in the past. Stopped in March 2017 Due to blood-tinged sputum Cardiology seeing in consultation-recommend continuing aspirin for now Continue telemetry (8) DVT prophylaxis Current Visit: Yes Status: Acute Assessment and plan: Continue SQ heparin - Time Spent With Patient Total time spent is greater than 50% in coordination of care (as documented) at patient's floor/unit and/or counseling patient: 25 - 35 minutes - Subjective Interval history: Patient seen and examined at bedside today. No acute changes. Continues to have shortness of breath above baseline, further exacerbated with activity. She is reporting that her story swelling is continued to improve. Denies any chest pain or discomfort with breathing. Continuing to have conversational dyspnea. - Constitutional Vitals: Temp Pulse Resp BP Pulse Ox 97.6 F 81 14 104/70 97 10/06/17 07:07 10/06/17 07:07 10/06/17 07:07 10/06/17 07:07 10/06/17 07:07 General appearance: Present: mild distress, A&O X 3, answers questions appropriately - Head Head exam: Present: atraumatic, normocephalic - Eye Eye exam: Present: EOMI, PERRL, conjuntiva pink, sclera anicteric Pupils: Present: PERRL - Neck Neck exam general surgery: Present: supple, trachea midline. Absent: lymphadenopathy - Respiratory Respiratory exam: Present: decreased breath sounds, CTAB, prolonged expiratory phase, respiratory distress, tachypnea. Absent: accessory muscle use, chest wall tenderness, rales, rhonchi, wheezes - Cardiovascular Cardiovascular exam: Present: RRR, +S1, +S2. Absent: diastolic murmur, gallop, rubs, systolic murmur - GI/Abdominal GI/Abdominal exam: Present: normal bowel sounds, soft, no peritoneal signs. Absent: distended, tenderness - Extremities Exam Extremities exam: Present: normal capillary refill, normal inspection, warm, radial pulses palpable and symmetrical. Absent: calf tenderness, cyanotic, pedal edema Additional comments: BLE swelling improving, generalized no longer 1+ pitting - Neurological Exam Neurological exam: Present: CN II-XII intact, oriented X3, no focal deficits. Absent: pronater drift, facial droop, speech deficit - Skin Skin exam: Present: dry, intact Internal Medicine: Result - Labs CBC & Chem 7: 10/06/17 06:32 10/06/17 06:32 Labs: Short CBC 10/06/17 Range/Units 06:32 WBC 7.8 (4.3-11.1) K/mcL Hgb 13.6 (11.5-15.4) g/dL Hct 43.4 (35.3-44.9) % Plt Count 163 (140-400) K/mcL Neutrophils # 6.7 (1.6-8.9) K/mcL BMP 10/06/17 06:32 Sodium 139 Potassium 3.9 Chloride 108 H Carbon Dioxide 25 BUN 31 H Creatinine 0.94 Glucose 140 H Calcium 8.8 - Impressions Impressions Echocardiogram 10/05/17 07:23 Impressions: LVEF 65%. Normal LV chamber size, wall thickness and function. Mild left ventricular diastolic dysfunction. Flattened interventricular septum suggestive of RV pressure-volume overload. Mild to moderately dilated right ventricle with mildly reduced function. Mild tricuspid regurgitation. Severe pulmonary hypertension. Estimated RVSP is 77-82 mmHg. There is a circumferential pericardial effusion present, which is large along the inferolateral and lateral segments of the LV and small anteriorly. There is no echocardiographic evidence of tamponade. Recommend a repeat study as clinically indicated. Left Ventricular Wall Motion: Rest Echo Findings All wall segments showed normal motion. Findings: Study Quality * Technically adequate exam. ECG Findings * Normal sinus rhythm. Left Ventricle * LVEF 65%. * Normal LV chamber size, wall thickness and function. * Mild left ventricular diastolic dysfunction. * Flattened interventricular septum suggestive of RV pressure-volume overload. Right Ventricle * Mildly dilated right ventricle with mildly reduced function. Left Atrium * Mildly dilated left atrium. Right Atrium * Severely dilated right atrium. Aortic Valve * Trileaflet aortic valve. * Mildly sclerotic aortic valve leaflets. * No aortic regurgitation. * No aortic stenosis. Mitral Valve * Normal mitral valve structure and function. * No mitral regurgitation. * No mitral stenosis. Tricuspid Valve * Normal tricuspid valve structure. * Mild tricuspid regurgitation. * Severe pulmonary hypertension. * Estimated RVSP is 77-82 mmHg. * Estimated RA pressure is 5-10 mmHg. Pulmonic Valve * Normal pulmonic valve structure and function. * No pulmonic regurgitation. Aorta * Normally sized aortic root. Pericardium * There is a circumferential pericardial effusion present, which is large along the inferolateral and lateral segments of the LV. It is small anteriorly. * There is no echocardiographic evidence of tamponade. IVC * The IVC is not dilated. * < 50% respiratory change. Pulmonary Artery * Normal visualized portions of the main pulmonary artery. * Pulmonary artery not well visualized. Consult Discharge Plan - Plan Referrals: Shruthi Plascencia, JUAN DAVID [Primary Care Provider] -
[2017-10-06] MEDS: Furosemide 40 MG/4 ML VIAL IVP SCH (15:59)
[2017-10-07] MEDS: Ipratropium/Albuterol Neb 3 ML IH SCH ×4 (04:02→22:56)
[2017-10-07 04:56] LABS: Basophils % 0.1 %; Hematocrit 43.4 % (35.3-44.9); Immature Granulocytes % 0.5 % (0-4); Lymphocytes # 0.7 K/mcL (0.6-4.6); Mean Corpuscular HGB Conc 32.3 g/dL (31.6-35.5); Mean Corpuscular Hemoglobin 31.2 pg (28.0-33.3); Mean Corpuscular Volume 96.7 fL (83.0-100.0); Mean Platelet Volume 11.2 fL (9.4-12.4); Monocytes # 0.5 K/mcL (0.0-1.3); Monocytes % 4.3 %; Neutrophils # 9.6 K/mcL (1.6-8.9); Platelet Count 176 K/mcL (140-400); Red Blood Count 4.49 M/mcL (3.82-4.97); Red Cell Distribution Width 15.7 % (11.5-14.5); Segmented Neutrophils % 89.1 %
[2017-10-07 05:16] LABS: BUN/Creatinine Ratio 32 (6-26); Blood Urea Nitrogen 31 mg/dL (8-23); Calcium 8.5 mg/dL (8.6-10.3); Carbon Dioxide 27 mEq/L (23-29); Chloride 103 mEq/L (98-107); Glucose 186 mg/dL (70-105); Osmolality,Calculated 297 (280-300); Potassium 3.7 mEq/L (3.5-5.1); Sodium 138 mEq/L (136-145); eGFR For African Americans > 60 (> 60); eGFR For Non-African Americans 59 (> 60)
[2017-10-07] MEDS: *HR* Heparin 5,000 UNIT/ML VIAL SQ SCH ×2 (06:24→17:02)
[2017-10-07 06:31] LABS: INR 1.1; Prothrombin Time 11.3 Seconds (9.4-12.1)
--- NOTE | 2017-10-07 07:59 | Internal Med Progress Note ---
Date of Encounter: 10/07/17 Time of Encounter: 08:00 - Assessment and plan (1) Pericardial effusion Current Visit: Yes Status: Acute Assessment and plan: CTA chest with findings of pericardial effusion 2.2 cm CXR did not show CHF or pleural effusions TTE-There is a circumferential pericardial effusion present, which is large along the inferolateral and lateral segments of the LV and small anteriorly. There is no echocardiographic evidence of tamponade. Continue IV Lasix 40 mg twice a day Strict I's and O's Sodium restriction Fluid restriction 1.5 L daily Daily weights Repeat TTE 10/07/17 per cardiology recs Cardiology following consultation, appreciate recommendations (2) COPD exacerbation Current Visit: No Status: Acute Assessment and plan: History of COPD, former smoker, partial lobectomy S/P lung cancer, structural lung disease, requires high flow nasal cannula 4 L at baseline Progressive shortness of breath X2 weeks Having cough and wheezing CXR negative for acute process, CTA chest negative for PE or acute process Continue nebs and steroids (3) Hypertension Current Visit: No Status: Chronic Assessment and plan: History of HTN. BP stable today 10/06/17 Not on anti-HTN medications Qualifiers: Hypertension type: essential hypertension Qualified Code(s): I10 - Essential (primary) hypertension (4) Hypothermia Current Visit: Yes Status: Acute Assessment and plan: Improving No episodes of hypothermia for the last 24 hours Continue to monitor closely Qualifiers: Encounter type: subsequent encounter Qualified Code(s): T68.XXXD - Hypothermia, subsequent encounter (5) Shortness of breath Current Visit: Yes Status: Acute Assessment and plan: See above (6) PAF (paroxysmal atrial fibrillation) Current Visit: Yes Status: Acute Assessment and plan: Paroxysmal A. fib reported per patient Unable to find official diagnosis of A. fib on chart review No episodes of A. fib overnight patient on Xarelto in the past. Stopped in March 2017 Due to blood-tinged sputum Cardiology seeing in consultation-recommend continuing aspirin for now Continue telemetry (7) DVT prophylaxis Current Visit: Yes Status: Acute Assessment and plan: Continue SQ heparin (8) Volume overload Current Visit: Yes Status: Acute Assessment and plan: Presents with volume overload 2 week history of dyspnea, weight gain and bilateral lower extremity swelling 1+ pitting edema bilateral lower extremities on admission now generalized edema without pitting BNP elevated at 1364 Chest x-ray did not show any CHF or pleural effusions Continue to treat with IV diuretics TTE-LVEF 65%. Normal LV chamber size, wall thickness and function. Mild LVDD. Flattened interventricular septum suggestive of RV pressure-volume overload. Mild to moderately dilated right ventricle with mildly reduced function. Mild TR. Severe pulmonary hypertension. Estimated RVSP is 77-82 mmHg. There is a circumferential pericardial effusion present, which is large along the inferolateral and lateral segments of the LV and small anteriorly. There is no echocardiographic evidence of tamponade. See further planning above Qualifiers: Hypervolemia type: unspecified Qualified Code(s): E87.70 - Fluid overload, unspecified - Time Spent With Patient Total time spent is greater than 50% in coordination of care (as documented) at patient's floor/unit and/or counseling patient: - Subjective Interval history: No acute events overnight - Constitutional Vitals: Temp Pulse Resp BP Pulse Ox 97.4 F L 88 16 113/71 97 10/07/17 04:10/07/17 04:10/07/17 04:10/07/17 04:10/07/17 04:09 General appearance: Present: mild distress, A&O X 3, answers questions appropriately - Head Head exam: Present: atraumatic, normocephalic - Eye Eye exam: Present: PERRL, conjuntiva pink, sclera anicteric Pupils: Present: PERRL - Neck Neck exam general surgery: Present: supple, trachea midline. Absent: lymphadenopathy - Respiratory Respiratory exam: Present: CTAB. Absent: accessory muscle use, rales, rhonchi, wheezes - Cardiovascular Cardiovascular exam: Present: RRR, +S1, +S2. Absent: diastolic murmur, gallop, rubs, systolic murmur - GI/Abdominal GI/Abdominal exam: Present: normal bowel sounds, soft, no peritoneal signs. Absent: distended, tenderness - Extremities Exam Extremities exam: Present: warm, radial pulses palpable and symmetrical. Absent : calf tenderness, cyanotic, pedal edema Additional comments: 2+ pitting edema - Neurological Exam Neurological exam: Present: CN II-XII intact, oriented X3, no focal deficits. Absent: pronater drift, facial droop, speech deficit - Skin Skin exam: Present: dry, intact Internal Medicine: Result - Labs CBC & Chem 7: 10/07/17 04:26 10/07/17 04:26 Labs: Short CBC 10/07/17 Range/Units 04:26 WBC 10.8 (4.3-11.1) K/mcL Hgb 14.0 (11.5-15.4) g/dL Hct 43.4 (35.3-44.9) % Plt Count 176 (140-400) K/mcL Neutrophils # 9.6 H (1.6-8.9) K/mcL BMP 10/07/17 04:26 Sodium 138 Potassium 3.7 Chloride 103 Carbon Dioxide 27 BUN 31 H Creatinine 0.96 Glucose 186 H Calcium 8.5 L - ABG Interpretation ABG results: PT/INR, D-dimer PT 11.3 Seconds (9.4-12.1) 10/07/17 05:49 Consult Discharge Plan - Plan Referrals: Shruthi Plascecnia, NANOFABRICATION SPECIALIST [Primary Care Provider] -
[2017-10-07] MEDS: Furosemide 40 MG/4 ML VIAL IVP SCH (08:40)
[2017-10-07] MEDS: Loratadine 10 MG TABLET PO SCH (08:45)
[2017-10-07] MEDS: Aspirin 81 MG TAB.CHEW PO SCH (08:45)
[2017-10-07] MEDS: Topiramate 100 MG TABLET PO SCH ×2 (08:46→21:11)
[2017-10-07] MEDS: Gabapentin 400 MG CAPSULE PO SCH ×3 (08:46→21:11)
[2017-10-07] MEDS: MethylPREDNISolone 40 MG/ML VIAL IVP SCH (08:58)
[2017-10-07] MEDS ORDERED: predniSONE 20 MG TABLET PO SCH (09:00)
--- NOTE | 2017-10-07 09:07 | Cardiology Progress Note ---
Date of Encounter: 10/07/17 Time of Encounter: 08:30 Assessment and Plan (1) Elevated brain natriuretic peptide (BNP) level Current Visit: Yes Status: Acute *er cardiology: -BNP 1364. Presented with worsening dyspnea and LE edema. -CXR did not show any CHF or pleural effusions. Chest CTA showed pericardial effusion 2.2cm--often overestimated on CT scans. -Echo resulted. LVEF 65%. Normal LV chamber size, wall thickness and function. Mild LVDD. Flattened interventricular septum suggestive of RV pressure-volume overload. Mild to moderately dilated right ventricle with mildly reduced function. Mild TR. Severe pulmonary hypertension. Estimated RVSP is 77-82 mmHg. There is a circumferential pericardial effusion present, which is large along the inferolateral and lateral segments of the LV and small anteriorly. There is no echocardiographic evidence of tamponade. -Currently net negative 4000ml. -Reports shortness of breath and edema improvement. -Ban signs stable, not in any acute distress. -Limited TTE pending today. - Strict I/Os, Na and fluid restriction, daily weights. -Further recommendations pending TTE. -Will hold IV lasix for now (net negative 4000ml), will give recommendations for lasix pending TTE. (2) Pericardial effusion Current Visit: Yes Status: Acute Per cardiology: -Pericardial effusion 2.[address] -TTE as above. -Not in any acute distress. Vital signs stable. -Again, plan to repeat limited TTE in am, as above. (3) PAF (paroxysmal atrial fibrillation) Current Visit: Yes Status: Acute Per cardiololgy: -Reports hx of A-Fib and states she was started on Xarelto during hospital stay in March. Stopped taking Xarelto due to blood tinged sputum when she would have a productive cough. -Upon review, I am unable to locate any EKGs showing pt in A-Fib. All EKGs show SR. Currently SR as well. -[id number] is 2 (HTN, Female). Given lack of confirmation of A-Fib, recommend continuing ASA for now. If has episode of documented A-Fib, would then recommend resuming terminal system operator anticoagulation. -Telemetry reviewed with no evidence of a.fib. -Will continue to monitor. Discussion w patient/family: The assessment and plan as outlined above was discussed with the patient who expressed understanding and agreement. All questions were answered. Thank you for involving us in the care of your patient. Please call with any questions. Discussed and reviewed with . Subjective Principal diagnosis: pericardial effusion/COPD exacerbation Interval history: Patient reports edema is resolved. Patient states breathing is about baseline. Currently laying flat. Objective Vital Signs, Last 4 Hours Temp Pulse Resp BP Pulse Ox 10/07/17 08:00 97.4 F L 87 18 99/63 92 General: Conversant, No Apparent Distress HEENT: Atraumatic, Normocephaly, Mucus Membranes Moist Neck: No JVD, Normal carotid pulses Cardiac: Reg Rate and Rhythm, Normal S1 and S2, No Murmur Lungs: Other (Lung sounds dimished to bilateral lower lobes. ) Neuro: Alert and responsive, No focal deficits noted Abdomen: Soft, Non-Tender Skin: No rashes noted on visualized skin Musculoskeletal: No Chest Wall Tenderness Extremities: No Clubbing, No Cyanosis, No Edema, Normal Pulses Results 10/07/17 04:26 10/07/17 04:26 Lab Results Active Medications Albuterol Sulfate (Albuterol Inhaler) 2 puff IH Q4HR PRN PRN Reason: Shortness Of Breath/Wheezing Stop: 04/06/18 03:41 Albuterol/Ipratropium (Duoneb) 3 ml IH QIDR ANNAMARIA Stop: 04/06/18 05:01 Last Admin: 10/07/17 04:02 Dose: Not Given Aspirin (Aspirin) 81 mg PO DAILY ANNAMARIA Stop: 04/07/18 09:01 Last Admin: 10/07/17 08:45 Dose: 81 mg Cyclobenzaprine HCl (Flexeril) 10 mg PO TID ANNAMARIA Stop: 04/06/18 15:01 Last Admin: 10/07/17 08:46 Dose: 10 mg Furosemide (Lasix) 40 mg IVP BIDDIURETIC ANNAMARIA Stop: 04/07/18 17:01 Last Admin: 10/07/17 08:40 Dose: Not Given Gabapentin (Neurontin) 400 mg PO TID ANNAMARIA Stop: 04/06/18 09:01 Last Admin: 10/07/17 08:46 Dose: 400 mg Heparin Sodium (Porcine) (Heparin) 5,000 unit SQ Q12HR ANNAMARIA Stop: 04/06/18 06:01 Last Admin: 10/07/17 06:24 Dose: Not Given Ibuprofen (Motrin) 800 mg PO TID PRN; Protocol PRN Reason: Pain Stop: 04/06/18 08:04 Last Admin: 10/06/17 21:27 Dose: 800 mg Loratadine (Claritin) 10 mg PO DAILY ANNAMARIA PRN Reason: Protocol Stop: 04/06/18 12:01 Last Admin: 10/07/17 08:45 Dose: 10 mg Montelukast Sodium (Singulair) 10 mg PO DAILY ANNAMARIA Stop: 04/06/18 12:01 Last Admin: 10/07/17 08:46 Dose: 10 mg Naloxone HCl (Narcan) 0.4 mg IVP Q2MIN PRN PRN Reason: SEE COMMENTS Stop: 04/06/18 03:51 Omeprazole (Prilosec) 20 mg PO DAILY ANNAMARIA PRN Reason: Protocol Stop: 04/06/18 12:01 Last Admin: 10/07/17 08:46 Dose: 20 mg Prednisone (Prednisone) 40 mg PO DAILY [facility] Stop: 04/08/18 09:01 Last Admin: 10/07/17 08:46 Dose: 40 mg Simvastatin (Zocor) 10 mg PO DAILY ANNAMARIA Stop: 04/07/18 09:01 Last Admin: 10/07/17 08:46 Dose: 10 mg Topiramate (Topamax) 100 mg PO BID [facility] Stop: 04/06/18 21:01 Last Admin: 10/07/17 08:46 Dose: 100 mg Laboratory Tests 10/07/17 10/07/17 04:26 04:26 Hgb 14.0 Creatinine 0.96 - Imaging and Cardiology Chest Xray: report reviewed Echo: pending, report reviewed - EKG Interpretation EKG results cardiology: other (Telemetry reviewed with average HR previous 12 hours noted to be 94, SR. PVCs, couplets, and PACs noted.) Consult Discharge Plan - Plan Referrals: Shruthi Plascencia, JUAN DAVID [Primary Care Provider] -
[2017-10-07] MEDS: Ibuprofen 600 MG TABLET PO PRN ×2 (14:52→22:25)
[2017-10-08] MEDS: Ipratropium/Albuterol Neb 3 ML IH SCH ×5 (03:34→20:08)
[2017-10-08 05:29] LABS: Basophils % 0.2 %; Eosinophils % 0.2 %; Hemoglobin 13.7 g/dL (11.5-15.4); Immature Granulocytes % 0.4 % (0-4); Lymphocytes # 2.2 K/mcL (0.6-4.6); Lymphocytes % 19.9 %; Mean Corpuscular HGB Conc 31.1 g/dL (31.6-35.5); Mean Corpuscular Hemoglobin 30.4 pg (28.0-33.3); Mean Corpuscular Volume 97.8 fL (83.0-100.0); Mean Platelet Volume 11.4 fL (9.4-12.4); Monocytes # 1.1 K/mcL (0.0-1.3); Monocytes % 9.9 %; Neutrophils # 7.7 K/mcL (1.6-8.9); Platelet Count 173 K/mcL (140-400); Red Cell Distribution Width 15.7 % (11.5-14.5); Segmented Neutrophils % 69.4 %
[2017-10-08 05:46] LABS: BUN/Creatinine Ratio 40 (6-26); Blood Urea Nitrogen 27 mg/dL (8-23); Calcium 8.4 mg/dL (8.6-10.3); Carbon Dioxide 27 mEq/L (23-29); Chloride 106 mEq/L (98-107); Glucose 131 mg/dL (70-105); Osmolality,Calculated 293 (280-300); Potassium 3.3 mEq/L (3.5-5.1); Sodium 138 mEq/L (136-145); eGFR For African Americans > 60 (> 60); eGFR For Non-African Americans > 60 (> 60)
[2017-10-08] MEDS: *HR* Heparin 5,000 UNIT/ML VIAL SQ SCH ×2 (06:29→17:15)
[2017-10-08] MEDS ORDERED: Potassium Chloride Elixir 20 MEQ/15 ML UDC PO ONE (07:49)
--- NOTE | 2017-10-08 08:00 | Discharge Summary ---
Orders not resulted at time of discharge: Pending orders 10/08/17 07:49 POC Urinalysis [POC] Routine 10/09/17 04:00 Basic Metabolic Panel AM 0400 CBC [Complete Blood Count] [HEME] AM 0400 10/10/17 04:00 Basic Metabolic Panel AM 0400 CBC [Complete Blood Count] [HEME] AM 0400 10/11/17 04:00 Basic Metabolic Panel AM 0400 CBC [Complete Blood Count] [HEME] AM 0400 Date of Encounter: 10/08/17 Time of Encounter: 07:50 - Discharge Diagnosis (1) Pericardial effusion Priority: Primary Status: Acute (2) COPD exacerbation Priority: Primary Status: Acute (3) Hypertension Status: Chronic Qualifiers: Hypertension type: essential hypertension Qualified Code(s): I10 - Essential (primary) hypertension (4) Hypothermia Status: Acute Qualifiers: Encounter type: subsequent encounter Qualified Code(s): T68.XXXD - Hypothermia, subsequent encounter (5) Shortness of breath Status: Acute (6) PAF (paroxysmal atrial fibrillation) Status: Acute (7) DVT prophylaxis Status: Acute (8) Volume overload Status: Acute Qualifiers: Hypervolemia type: unspecified Qualified Code(s): E87.70 - Fluid overload, unspecified Hospital course: Ms. Novak is a 62 year old female - Time Spent with Patient Total time spent providing and/or coordinating discharge services: - Discharge Medications Prescriptions: predniSONE [PredniSONE] 40 mg PO DAILY #5 tablet Home Medications: Loratadine [Allergy Relief] 10 mg PO DAILY 07/16/16 [History] Aspirin 81 mg PO DAILY 04/04/17 [History] Cyclobenzaprine [Flexeril] 10 mg PO TID 04/04/17 [History] Metoprolol [Lopressor] 12.5 mg PO BID 04/04/17 [History] Pravastatin Sodium [Pravachol] 20 mg PO DAILY 04/04/17 [History] Topiramate [Topamax] 100 mg PO BID 04/04/17 [History] Lisinopril [Zestril] 10 mg PO DAILY 10/04/17 [History] Albuterol Sulfate [Ventolin Hfa] 2 puff IH Q4H PRN 10/05/17 [History] Gabapentin [Neurontin] 400 mg PO TID 10/05/17 [History] Ibuprofen [Ibu] 800 mg PO TID 10/05/17 [History] Montelukast [Singulair] 10 mg PO DAILY 10/05/17 [History] Omeprazole [PriLOSEC] 20 mg PO DAILY 10/05/17 [History] Furosemide [Lasix] 40 mg PO BID #60 tab 10/08/17 [Rx] predniSONE [PredniSONE] 40 mg PO DAILY #5 tablet 10/08/17 [Rx] Allergies/Adverse Reactions: 3 Allergy/AdvReac Type Severity Reaction Status Date / Time acetaminophen AdvReac Hallucinati Verified 04/04/17 17:06 [From Darvocet-N] ng azithromycin [From Zithromax] AdvReac Rash Verified 04/07/17 07:54 duloxetine [From Cymbalta] AdvReac Nausea Verified 04/04/17 17:06 fentanyl AdvReac Vomiting Verified 04/04/17 17:06 propoxyphene AdvReac Hallucinati Verified 04/04/17 17:06 [From Darvocet-N] ng Sulfa (Sulfonamide AdvReac Rash Verified 04/04/17 17:06 Antibiotics) Tetracycline AdvReac Nausea Verified 04/04/17 17:06 Date of admission: 10/05/17 03:50 Primary care physician: Shruthi Plascencia Consults: 10/05/17 03:40 Consult to Nurse Navigator [CONS] Routine Comment: 10/05/17 06:08 Consult to Cardiology [CONS] Routine Comment: Consulting Provider: Cardiology Sarah Reason for Consult: Pericardial effusion, no heart strain. Call Completed: No 10/08/17 07:28 Consult to Wooden Frame Builder [CONS] Routine Reason for SW Consult: Would like a home health aide to help with ADL's at home. She does not drive. - Constitutional Vitals: Temp Pulse Resp BP Pulse Ox 97.4 F L 84 22 100/60 97 10/08/17 07:03 10/08/17 07:03 10/08/17 07:03 10/08/17 07:03 10/08/17 07:03 General appearance: Present: mild distress, A&O X 3, answers questions appropriately - Head Head exam: Present: atraumatic, normocephalic - Eye Eye exam: Present: PERRL, conjuntiva pink, sclera anicteric Pupils: Present: PERRL - Neck Neck exam general surgery: Present: supple, trachea midline. Absent: lymphadenopathy - Respiratory Respiratory exam: Present: CTAB. Absent: accessory muscle use, rales, rhonchi, wheezes - Cardiovascular Cardiovascular exam: Present: RRR, +S1, +S2. Absent: diastolic murmur, gallop, rubs, systolic murmur - GI/Abdominal GI/Abdominal exam: Present: normal bowel sounds, soft, no peritoneal signs. Absent: distended, tenderness - Extremities Exam Extremities exam: Present: warm, radial pulses palpable and symmetrical. Absent : calf tenderness, cyanotic, pedal edema - Neurological Exam Neurological exam: Present: CN II-XII intact, oriented X3, no focal deficits. Absent: pronater drift, facial droop, speech deficit - Skin Skin exam: Present: dry, intact - Discharge Instructions Follow Up With: Shruthi Plascencia CNP [Primary Care Provider] -
--- NOTE | 2017-10-08 08:05 | Internal Med Progress Note ---
Date of Encounter: 10/08/17 Time of Encounter: 08:00 - Assessment and plan (1) COPD exacerbation Current Visit: No Status: Acute Assessment and plan: History of COPD, former smoker, partial lobectomy S/P lung cancer, structural lung disease with pulmonary fibrosis, requires high flow nasal cannula 4 L at baseline Progressive shortness of breath X2 weeks Having cough and wheezing CXR negative for acute process, CTA chest negative for PE or acute process Pt continues to have increased oxygen demand, desaturating to 75 % on 4L , continue nebs, steroids and antibiotics. obtain ABG. Pulm recs appreciated. Repeat xray today (2) Acute and chronic respiratory failure with hypoxia Current Visit: Yes Status: Acute Assessment and plan: See management for COPD (3) Acute right heart failure Current Visit: Yes Status: Acute Assessment and plan: ECho shows evidence of RV volume overload. Continue IV lasix. Repeat xray today (4) Pericardial effusion Current Visit: Yes Status: Acute Assessment and plan: CTA chest with findings of pericardial effusion 2.2 cm CXR did not show CHF or pleural effusions TTE-There is a circumferential pericardial effusion present, which is large along the inferolateral and lateral segments of the LV and small anteriorly. There is no echocardiographic evidence of tamponade. Continue IV Lasix 40 mg twice a day Strict I's and O's Sodium restriction Fluid restriction 1.5 L daily Daily weights Repeat TTE on 10/07/17 shows no evidence of tamponade. Cardiology will follow as an outpatient and repeat TTE (5) Hypertension Current Visit: No Status: Chronic Assessment and plan: History of HTN. BP stable today 10/06/17 Not on anti-HTN medications Qualifiers: Hypertension type: essential hypertension Qualified Code(s): I10 - Essential (primary) hypertension (6) Shortness of breath Current Visit: Yes Status: Acute Assessment and plan: See above (7) PAF (paroxysmal atrial fibrillation) Current Visit: Yes Status: Acute Assessment and plan: Paroxysmal A. fib reported per patient Unable to find official diagnosis of A. fib on chart review No episodes of A. fib overnight patient on Xarelto in the past. Stopped in March 2017 Due to blood-tinged sputum Cardiology seeing in consultation-recommend continuing aspirin for now Continue telemetry (8) DVT prophylaxis Current Visit: Yes Status: Acute Assessment and plan: Continue SQ heparin (9) Volume overload Current Visit: Yes Status: Acute Assessment and plan: Presents with volume overload 2 week history of dyspnea, weight gain and bilateral lower extremity swelling 1+ pitting edema bilateral lower extremities on admission now generalized edema without pitting BNP elevated at 1364 Chest x-ray did not show any CHF or pleural effusions Continue to treat with IV diuretics TTE-LVEF 65%. Normal LV chamber size, wall thickness and function. Mild LVDD. Flattened interventricular septum suggestive of RV pressure-volume overload. Mild to moderately dilated right ventricle with mildly reduced function. Mild TR. Severe pulmonary hypertension. Estimated RVSP is 77-82 mmHg. There is a circumferential pericardial effusion present, which is large along the inferolateral and lateral segments of the LV and small anteriorly. There is no echocardiographic evidence of tamponade. See further planning above Qualifiers: Hypervolemia type: unspecified Qualified Code(s): E87.70 - Fluid overload, unspecified (10) Acute on chronic respiratory failure with hypoxia and hypercapnia Current Visit: Yes Status: Acute - Time Spent With Patient Total time spent is greater than 50% in coordination of care (as documented) at patient's floor/unit and/or counseling patient: - Subjective Interval history: No acute events overnight - Constitutional Vitals: Temp Pulse Resp BP Pulse Ox 97.4 F L 84 22 100/60 97 10/08/17 07:03 10/08/17 07:03 10/08/17 07:03 10/08/17 07:03 10/08/17 07:03 General appearance: Present: mild distress, A&O X 3, answers questions appropriately - Head Head exam: Present: atraumatic, normocephalic - Eye Eye exam: Present: PERRL, conjuntiva pink, sclera anicteric Pupils: Present: PERRL - Neck Neck exam general surgery: Present: supple, trachea midline. Absent: lymphadenopathy - Respiratory Respiratory exam: Present: CTAB. Absent: accessory muscle use, rales, rhonchi, wheezes Additional comments: crepitus in lung bases bilaterally - Cardiovascular Cardiovascular exam: Present: RRR, +S1, +S2. Absent: diastolic murmur, gallop, rubs, systolic murmur - GI/Abdominal GI/Abdominal exam: Present: normal bowel sounds, soft, no peritoneal signs. Absent: distended, tenderness - Extremities Exam Extremities exam: Present: warm, radial pulses palpable and symmetrical. Absent : calf tenderness, cyanotic, pedal edema - Neurological Exam Neurological exam: Present: CN II-XII intact, oriented X3, no focal deficits. Absent: pronater drift, facial droop, speech deficit - Skin Skin exam: Present: dry, intact Internal Medicine: Result - Labs CBC & Chem 7: 10/08/17 04:41 10/08/17 04:41 Labs: Short CBC 10/08/17 Range/Units 04:41 WBC 11.1 (4.3-11.1) K/mcL Hgb 13.7 (11.5-15.4) g/dL Hct 44.0 (35.3-44.9) % Plt Count 173 (140-400) K/mcL Neutrophils # 7.7 (1.6-8.9) K/mcL BMP 10/08/17 04:41 Sodium 138 Potassium 3.3 L Chloride 106 Carbon Dioxide 27 BUN 27 H Creatinine 0.68 Glucose 131 H Calcium 8.4 L - ABG Interpretation ABG results: PT/INR, D-dimer PT 11.3 Seconds (9.4-12.1) 10/07/17 05:49 - Impressions Impressions Echocardiogram Limited Views 10/07/17 08:00 Impressions: There is a circumferential pericardial effusion which is large along the inferolateral and lateral segments and small anteriorly. No Echo evidence for tamponade. No significant change when compared to TTE 10/05/2017. LVEF 60-65%. RV is dilated and hypokinetic. IV septum is flattened predominately during diastole suggesting RV volume overload. Left Ventricular Wall Motion: Rest Echo Findings All wall segments showed normal motion. Findings: Study Quality * Technically adequate exam. ECG Findings * Possible atrial flutter. Left Ventricle * LVEF 60-65%. * Normal LV chamber size, wall thickness and function. Right Ventricle * RV is dilated and hypokinetic. Pericardium * There is a circumferential pericardial effusion which is large along the inferolateral and lateral segments and small anteriorly. IVC * Normal IVC dimensions and inspiratory collapse. Consult Discharge Plan - Plan Referrals: Shruthi Plascencia, JUAN DAVID [Primary Care Provider] - (Please follow up as schedule...) Prescriptions: Furosemide [Lasix] 40 mg PO BID #60 tab predniSONE [PredniSONE] 40 mg PO DAILY #5 tablet
--- NOTE | 2017-10-08 08:12 | Pulmonology Consult Note ---
Date of Encounter: 10/08/17 Time of Encounter: 08:12 Assessment and Plan (1) Acute and chronic respiratory failure with hypoxia Current Visit: Yes Status: Acute In conclusion Ms. Novak is a very pleasant 62-year-old woman with a past medical history of COPD lung cancer status post resection and pulmonary fibrosis. She presented with acute on chronic respiratory failure noted to have a pericardial effusion. Since admission she is undergoing diuresis with somewhat improvement in her symptoms but she still feeling significantly short of breath with persistent hypoxemia higher than her baseline of 4 L. I had the chance to review her CT scan echocardiogram and pulmonary function testing. My overall concern for this patient is that she is presenting with a worsening RV dysfunction/failure secondary to pulmonary hypertension. Although it is very difficult to classify her with group 1 disease that is pulmonary arterial hypertension I have a high suspicion that this is the case with likely contributions from group 2 pulmonary venous hypertension from mild diastolic dysfunction and group 3 pulmonary hypertension secondary to chronic hypoxemia from lung etiology vis-a-vis ILD and COPD. my overall Gestalt at this point is that the patient is likely suffering from chronic inflammatory arthritis which is manifested as both pulmonary fibrosis and likely PAH. Leading suspicion is that she likely suffers from rheumatoid arthritis or process possibly rheumatoid arthritis overlap syndrome with scleroderma. Unfortunately presentation of pericardial effusion secondary to pulmonary arterial hypertension is a a relatively late manifestation of the disease and is a harbinger of poor prognosis. Alternatively but considered less likely as it her pulmonary hypertension is just related to underlying interstitial lung disease and COPD. I do not think that her RV dysfunction represents volume overload from left heart disease given the echocardiogram results. I have also discussed the case extensively with the primary embedded engineer Dr. Kulkarni and reviewed her echocardiogram with him and he is in conclusion that there is not strong evidence of left heart disease here. The patient screens negative for sleep-disordered breathing and this is not suspected based upon physical examination Although she suffers from COPD it is equivocal whether or not she is experiencing exacerbation at this time I tend to favor that that she is not however she has been started on steroids which may be reasonable treatment if for no other reason than from the severity of her joint pains. Radiographically I do not see evidence for recurrence of lung cancer at this time. Nor is there clear evidence of pulmonary infection. Recs: -Continue supplemental oxygen to keep saturation greater than 88%. I suspect that the increased oxygen requirement the patient is suffering from is likely a manifestation of worsening cardiopulmonary status in general and this may reflect a new normal for her. - Hold further aggressive IV diuresis her blood pressure is borderline and there is a real possibility of precipitating cardiogenic shock with overdiuresis. It would be reasonable to start a daily diuretic dose such as 20 mg of Lasix by mouth. The degree of her lower extremity swelling is related to cor pulmonale and not left-sided heart failure -I have ordered basic rheumatological panel on an urgent basis; she is also be evaluated for cirrhosis and HIV -Continue scheduled bronchodilators -Transition to by mouth steroids prednisone 40 mg daily is reasonable with planned to de-escalate over the next 2 weeks -I had a nita conversation with the patient I suspect that she would need transfer to a tertiary referral center for right heart catheterization and evaluation of initiation of vasodilator therapy/prostaglandin infusion on an urgent basis if this ends up being a manifestation of PAH given the degree of right ventricular dysfunction and recent clinical decline. Somewhat encouragingly there is no evidence of renal dysfunction. She is amenable to transfer -Prognosis at this time remains guarded -Pulmonary will continue to follow thank you for this consultation (2) Pulmonary hypertension Current Visit: Yes Status: Acute (3) Pulmonary fibrosis Current Visit: Yes Status: Acute (4) COPD with exacerbation Current Visit: Yes Status: Acute (5) Pericardial effusion Current Visit: Yes Status: Acute (6) (HFpEF) heart failure with preserved ejection fraction Current Visit: Yes Status: Acute History of Present Illness Consult date: 10/08/17 Requesting physician: Halley Mayo Reason for consult: hypoxemia Chief complaint: Difficulty in breathing History of present illness: This is a pleasant 62-year-old woman with a past medical history of COPD and heart failure with preserved ejection fraction. She initially presented to the emergency room at [facility] for shortness of breath and worsening larks are swelling. Labs were notable on admission for elevated BNP to greater than 1000 she also had a positive d-dimer to 770 a CTA of the chest was performed which was negative for PE but the showed a 2.2 cm pericardial effusion she was transferred to [facility] for further evaluation. Since being here she is requiring increased oxygen from her baseline 4 L. The patient was seen by cardiology felt that she was in heart failure and she is been aggressively diuresed over 4 L since admission. The echocardiogram on this admission was negative for pericardial tamponade but noted to preserved ejection fraction but severe pulmonary hypertension including dilated RV that was hypokinetic and IV septum that was flattened predominantly during diastole suggesting RV volume overload. to 10/05/2017 Pulmonary was consulted because of continued need for increased oxygen requirement despite treatment for her heart failure. She states that she has had increased shortness of breath over the last couple of days prior to admission to the hospital but has noticed significant decline over the last 6 months with regards to her shortness of breath. Was troubling her the most was bilateral lower extremity swelling which is really become severe to the point that her feet felt like she had "a clubfoot" she is also noticed a lifelong arthritis primarily in her hands but is also noted in her knees as well. In fact prior to admission to hospital she noted redness of her joints of her hands and they were excruciatingly painful From a pulmonary standpoint she is a former smoker of one pack a day for approximately 47 years but quit approximately 6 months ago She is status post left upper lobectomy for lung cancer. She said evidence of pulmonary fibrosis without complete evaluation on CT scan in 2017 as well as on CTA on this admission. PFTs are notable for restrictive physiology along with a markedly reduced DLCO. Past Med Surg Social Fam HX - Past Medical History Medical history: arthritis, atrial fibrillation, cancer, COPD, GERD, hypertension Additional medical history: lung cancer Psychiatric history: anxiety, depression, panic disorder - Past Surgical History Surgical History: cataract, cholecystectomy Additional surgical history: TONSILLECTOMY. TEETH EXTRACTION. BREAST REDUCTION. lung surgery to remove cancer - Social History Smoking Status: Former smoker Smokeless Tobacco Status: No Alcohol use: none Drug use: none Medications and Allergies Loratadine [Allergy Relief] 10 mg PO DAILY 07/16/16 [History] Aspirin 81 mg PO DAILY 04/04/17 [History] Cyclobenzaprine [Flexeril] 10 mg PO TID 04/04/17 [History] Metoprolol [Lopressor] 12.5 mg PO BID 04/04/17 [History] Pravastatin Sodium [Pravachol] 20 mg PO DAILY 04/04/17 [History] Topiramate [Topamax] 100 mg PO BID 04/04/17 [History] Lisinopril [Zestril] 10 mg PO DAILY 10/04/17 [History] Albuterol Sulfate [Ventolin Hfa] 2 puff IH Q4H PRN 10/05/17 [History] Gabapentin [Neurontin] 400 mg PO TID 10/05/17 [History] Ibuprofen [Ibu] 800 mg PO TID 10/05/17 [History] Montelukast [Singulair] 10 mg PO DAILY 10/05/17 [History] Omeprazole [PriLOSEC] 20 mg PO DAILY 10/05/17 [History] Furosemide [Lasix] 40 mg PO BID #60 tab 10/08/17 [Rx] predniSONE [PredniSONE] 40 mg PO DAILY #5 tablet 10/08/17 [Rx] 3 Allergy/AdvReac Type Severity Reaction Status Date / Time acetaminophen AdvReac Hallucinati Verified 04/04/17 17:06 [From Darvocet-N] ng azithromycin [From Zithromax] AdvReac Rash Verified 04/07/17 07:54 duloxetine [From Cymbalta] AdvReac Nausea Verified 04/04/17 17:06 fentanyl AdvReac Vomiting Verified 04/04/17 17:06 propoxyphene AdvReac Hallucinati Verified 04/04/17 17:06 [From Darvocet-N] ng Sulfa (Sulfonamide AdvReac Rash Verified 04/04/17 17:06 Antibiotics) Tetracycline AdvReac Nausea Verified 04/04/17 17:06 All Systems: The remainder of the systems were reviewed and are negative Physical Examination Vital Signs: Vital Signs, Last 4 Hours Temp Pulse Resp BP Pulse Ox 10/08/17 07:03 97.4 F L 84 22 100/60 97 General appearance: no acute distress Eyes: nonicteric ENT: oropharynx moist Mallampati (class): 1 Neck: supple, JVD Effort: normal Auscultation: bilateral: rales (Velcro inspiratory crackles bilaterally) Cardiovascular: regular rate and rhythm Gastrointestinal: normoactive bowel sounds, soft, non-tender Integumentary: other (Tapering of the skin of her digits) Extremities: no cyanosis, other (Clubbing noted) Musculoskeletal: joint inflammation, joint tenderness normal mental status, non-focal exam mood appropriate Results - Laboratory Findings CBC and BMP: 10/08/17 04:41 10/08/17 04:41 PT/INR, D-dimer PT 11.3 Seconds (9.4-12.1) 10/07/17 05:49 Abnormal lab findings: Abnormal lab results MCHC 31.1 g/dL (31.6-35.5) L 10/08/17 04:41 RDW 15.7 % (11.5-14.5) H 10/08/17 04:41 Immature Plt Fraction 7.8 % (1.1-6.1) H 10/05/17 05:31 Potassium 3.3 mEq/L (3.5-5.1) L 10/08/17 04:41 BUN 27 mg/dL (8-23) H 10/08/17 04:41 BUN/Creatinine Ratio 40 (6-26) H 10/08/17 04:41 Glucose 131 mg/dL (70-105) H 10/08/17 04:41 Calcium 8.4 mg/dL (8.6-10.3) L 10/08/17 04:41 - Microbiology Findings Microbiology Findings: Microbiology, Last 48 Hours 10/06/17 19:10 Legionella Antigen - Final Urine,Clean Catch Streptococcus pneumoniae Antigen (M - Final - Diagnostic Findings Chest x-ray: report reviewed, image reviewed CT scan - chest: report reviewed, image reviewed PFT's: report reviewed, image reviewed - Clinical Findings Intake & Output: Intake & Output 10/07/17 10/08/17 10/08/17 23:59 07:59 15:59 Intake Total 300 / 300 Output Total 1200 / 1200 450 / 450 Balance -900 / -900 -450 / -450 Weight 70.4 kg Consult Discharge Plan - Plan Referrals: Shruthi Plascencia, JUAN DAVID [Primary Care Provider] - (Please follow up as schedule...) Prescriptions: Furosemide [Lasix] 40 mg PO BID #60 tab predniSONE [PredniSONE] 40 mg PO DAILY #5 tablet
[2017-10-08] MEDS: Budesonide/Formoterol 160/4.5 MDI IH SCH ×2 (08:24→20:08)
[2017-10-08 08:42] LABS: ABG Base Excess 4 mEq/L (-2 to 3); ABG HCO3 31 mEq/L (21-27); ABG Oxygen Saturation 80 % (95-98); ABG PCO2 54 mmHg (35-45); ABG PH 7.36 pH Units (7.32-7.45); ABG PO2 47 mmHg (85-104); ABG TCO2 32 mEq/L (20-26)
[2017-10-08] MEDS ORDERED: Furosemide 40 MG/4 ML VIAL IVP SCH ×2 (09:00)
[2017-10-08] MEDS: methylPREDNISolone 125 MG/2 ML VIAL IVP SCH ×3 (10:05→23:38)
[2017-10-08] MEDS: Ibuprofen 600 MG TABLET PO PRN ×2 (10:07→16:15)
[2017-10-08] MEDS: Aspirin 81 MG TAB.CHEW PO SCH (10:07)
[2017-10-08] MEDS: Gabapentin 400 MG CAPSULE PO SCH ×3 (10:07→20:56)
[2017-10-08] MEDS: Topiramate 100 MG TABLET PO SCH ×2 (10:07→20:57)
[2017-10-08] MEDS: Loratadine 10 MG TABLET PO SCH (10:07)
[2017-10-08] MEDS: Levofloxacin 750 MG/150 ML 750 MG/150 ML BAG IVPB SCH (10:08)
[2017-10-08 11:51] LABS: Bilirubin,Urine Negative (Negative); Blood,Urine Negative (Negative); Clarity,Urine Clear (Clear); Color,Urine Yellow (Yellow); Glucose,Urine (UA) Normal (Normal); Ketones,Urine Negative (Negative); Leukocyte Esterase,Urine Small (Negative); Nitrite,Urine Negative (Negative); PH,Urine 6.5 pH Units (5.0-8.0); Protein,Urine Negative (Neg-Trace); Specific Gravity,Urine 1.015 (1.010-1.025); Urobilinogen,Urine Normal (Normal)
[2017-10-08 11:52] LABS: Bacteria,Urine None Seen per hpf (None-Few); Hyaline Casts,Urine None Seen per lpf (None-Few); Squamous Epithelial Cell,Urine Many per lpf (None-Few); WBC,Urine 0-3 per hpf (0-3)
[2017-10-08 12:04] LABS: RBC,Urine 0-3 per hpf (0-3)
[2017-10-08] MEDS: Ibuprofen 800 MG TABLET PO PRN (23:38)
[2017-10-09] MEDS: Ipratropium/Albuterol Neb 3 ML IH SCH ×7 (00:11→23:08)
[2017-10-09 03:52] LABS: Basophils % 0.1 %; Hematocrit 48.7 % (35.3-44.9); Immature Granulocytes % 0.8 % (0-4); Lymphocytes # 0.6 K/mcL (0.6-4.6); Lymphocytes % 6.3 %; Mean Corpuscular HGB Conc 31.6 g/dL (31.6-35.5); Mean Corpuscular Hemoglobin 30.9 pg (28.0-33.3); Mean Corpuscular Volume 97.8 fL (83.0-100.0); Mean Platelet Volume 11.7 fL (9.4-12.4); Monocytes # 0.4 K/mcL (0.0-1.3); Monocytes % 4.5 %; Neutrophils # 7.9 K/mcL (1.6-8.9); Platelet Count 180 K/mcL (140-400); Red Blood Count 4.98 M/mcL (3.82-4.97); Red Cell Distribution Width 15.4 % (11.5-14.5); Segmented Neutrophils % 88.3 %
[2017-10-09 03:54] LABS: Hemoglobin 15.4 g/dL (11.5-15.4)
[2017-10-09 04:08] LABS: BUN/Creatinine Ratio 31 (6-26); Blood Urea Nitrogen 25 mg/dL (8-23); Calcium 8.7 mg/dL (8.6-10.3); Carbon Dioxide 22 mEq/L (23-29); Chloride 105 mEq/L (98-107); Glucose 166 mg/dL (70-105); Osmolality,Calculated 286 (280-300); Potassium 4.5 mEq/L (3.5-5.1); Sodium 134 mEq/L (136-145); eGFR For African Americans > 60 (> 60); eGFR For Non-African Americans > 60 (> 60)
[2017-10-09] MEDS: *HR* Heparin 5,000 UNIT/ML VIAL SQ SCH ×2 (05:24→17:42)
--- NOTE | 2017-10-09 06:51 | Pulmonology Progress Note ---
Date of Encounter: 10/09/17 Time of Encounter: 06:51 Assessment and Plan (1) Acute and chronic respiratory failure with hypoxia Current Visit: Yes Status: Acute This 62-year-old woman who presented with acute on chronic respiratory failure with evidence of right heart failure and pericardial effusion She has CT evidence of pulmonary fibrosis history of COPD and lung cancer. She also presented with worsening joint pain and clinical decline including severely diminished exercise capacity such that she is unable to walk from the couch to the kitchen to cook a meal. Her rheumatoid factor is checked yesterday is >120. Impression: Acute on Chronic Hypoxic Respiratory Failure Pulmonary Hypertension suspected PAH from CTD complicated by chronic hypoxia from ILD and COPD. NYHA III Right Heart Failure Suspected Rheumatoid Arthritis with acute flare ILD suspected UIP s/t CT (RA) COPD History Lung CA s/p Resection and appears in radiographic remission Recs: -Cont PO Diuretic -strict I/Os -By mouth steroids 30 mg prednisone with plan to taper -Scheduled bronchodiladtors -Doubt infection Stop ABx -Rheumatoid factor elevated we will follow-up on remaining inflammatory serologies (VITO, aCCP etc) -She appears to be reaching euvolemic status recommend transfer to tertiary referral center ([facility]) for urgent evaluation of pulmonary arterial hypertension. I personally discussed this case with baseball hand sewer and pulmonary hypertension expert at [facility] Dr Marilin Edwards. Transfer can be arranged tomorrow (10/10). Recommend social work/caseworker evaluation of this case prior to transfer. Patient agreeable to transfer (2) Pulmonary hypertension Current Visit: Yes Status: Acute (3) Pulmonary fibrosis Current Visit: Yes Status: Acute (4) Right heart failure due to pulmonary hypertension Current Visit: Yes Status: Acute Subjective Principal diagnosis: pericardial effusion/COPD exacerbation Interval history: Overnight no acute events. She was in had another 2 L negative. Was started on antibiotics per primary service. Says her oxygen requirements and dyspnea are unchanged. She is on 6 L nasal cannula with saturation in the mid 90s Objective PUL Vital signs: Last Vital Signs Temp 97.7 F 10/09/17 05:35 Pulse 82 10/09/17 05:35 Resp 17 10/09/17 05:35 BP 108/66 10/09/17 05:35 Pulse Ox 95 10/09/17 05:35 General appearance: no acute distress Eyes: nonicteric ENT: oropharynx moist Neck: supple Auscultation: bilateral: rales Cardiovascular: regular rate and rhythm Gastrointestinal: normoactive bowel sounds, soft, non-tender Extremities: edema (b/l 1+ LE edema ) normal mental status, non-focal exam mood appropriate Results - Laboratory Findings CBC and BMP: 10/09/17 03:17 10/09/17 03:17 ABG ABG pH 7.36 pH Units (7.32-7.45) 10/08/17 08:23 ABG pCO2 54 mmHg (35-45) H 10/08/17 08:23 ABG pO2 47 mmHg (85-104) L* 10/08/17 08:23 ABG O2 Saturation 80 % (95-98) L 10/08/17 08:23 PT/INR, D-dimer PT 11.3 Seconds (9.4-12.1) 10/07/17 05:49 Abnormal lab findings: Abnormal lab results RBC 4.98 M/mcL (3.82-4.97) H 10/09/17 03:17 Hct 48.7 % (35.3-44.9) H 10/09/17 03:17 RDW 15.4 % (11.5-14.5) H 10/09/17 03:17 Immature Plt Fraction 7.8 % (1.1-6.1) H 10/05/17 05:31 ABG pCO2 54 mmHg (35-45) H 10/08/17 08:23 ABG pO2 47 mmHg (85-104) L* 10/08/17 08:23 ABG HCO3 31 mEq/L (21-27) H 10/08/17 08:23 ABG Total CO2 32 mEq/L (20-26) H 10/08/17 08:23 ABG O2 Saturation 80 % (95-98) L 10/08/17 08:23 ABG Base Excess 4 mEq/L (-2 to 3) H 10/08/17 08:23 Sodium 134 mEq/L (136-145) L 10/09/17 03:17 Carbon Dioxide 22 mEq/L (23-29) L 10/09/17 03:17 BUN 25 mg/dL (8-23) H 10/09/17 03:17 BUN/Creatinine Ratio 31 (6-26) H 10/09/17 03:17 Glucose 166 mg/dL (70-105) H 10/09/17 03:17 Ur Leukocyte Esterase Small (Negative) H 10/08/17 11:00 Ur Squamous Epith Cells Many per lpf (None-Few) H 10/08/17 11:00 Rheumatoid Factor > 120 IU/mL (Less than 14) H 10/08/17 10:30 - Clinical Findings Intake & Output: Intake & Output 10/08/17 10/08/17 10/09/17 15:59 23:59 07:59 Intake Total 600 / 600 120 / 120 Output Total 1300 / 1300 925 / 925 600 / 600 Balance -700 / -700 -805 / -805 -600 / -600 Weight 70.5 kg Consult Discharge Plan - Plan Referrals: Shruthi Plascencia, DITCH [employer]ER [Primary Care Provider] - (Please follow up as schedule...) Prescriptions: Furosemide [Lasix] 40 mg PO BID #60 tab predniSONE [PredniSONE] 40 mg PO DAILY #5 tablet
[2017-10-09] MEDS: Budesonide/Formoterol 160/4.5 MDI IH SCH ×2 (07:39→20:19)
[2017-10-09] MEDS: Levofloxacin 750 MG/150 ML 750 MG/150 ML BAG IVPB SCH (07:41)
[2017-10-09] MEDS: methylPREDNISolone 125 MG/2 ML VIAL IVP SCH (07:41)
[2017-10-09] MEDS: Gabapentin 400 MG CAPSULE PO SCH ×3 (07:42→19:57)
[2017-10-09] MEDS: Furosemide 20 MG TABLET PO SCH ×2 (07:42→07:50)
[2017-10-09] MEDS: Ibuprofen 800 MG TABLET PO PRN ×3 (07:42→23:59)
[2017-10-09] MEDS: Loratadine 10 MG TABLET PO SCH (07:42)
[2017-10-09] MEDS: Topiramate 100 MG TABLET PO SCH ×2 (07:42→19:57)
[2017-10-09] MEDS: Aspirin 81 MG TAB.CHEW PO SCH (07:42)
--- NOTE | 2017-10-09 07:47 | Internal Med Progress Note ---
Date of Encounter: 10/09/17 Time of Encounter: 07:45 - Assessment and plan (1) Acute right heart failure Current Visit: Yes Status: Acute Assessment and plan: ECho shows evidence of RV volume overload. Seen by pulmonary. Think etiology may be 2/2 to severe pulmonary hypertension with superimposed connective tissue disease. Being worked uop for rheumatoid arthritis,connective tissue disease, follow up rheumatoid, scleroderma studies, will obtain HIV and ultrasound of liver to rule out cirrhosis. Iv lasix discontinued and switched to PO. Patient may need transfer to a tertiary center for right heart cath and initiation of vasodilator/prostaglandin. Continue to follow pulm recs. (2) COPD exacerbation Current Visit: No Status: Acute Assessment and plan: History of COPD, former smoker, partial lobectomy S/P lung cancer, structural lung disease with pulmonary fibrosis, requires high flow nasal cannula 4 L at baseline Progressive shortness of breath X2 weeks Having cough and wheezing CXR negative for acute process, CTA chest negative for PE or acute process Pt continues to have increased oxygen demand, desaturating to 75 % on 4L , continue nebs, steroids and antibiotics. obtain ABG. Pulm recs appreciated. Repeat xray today (3) Acute and chronic respiratory failure with hypoxia Current Visit: Yes Status: Acute Assessment and plan: See management for COPD (4) Pericardial effusion Current Visit: Yes Status: Acute Assessment and plan: CTA chest with findings of pericardial effusion 2.2 cm CXR did not show CHF or pleural effusions TTE-There is a circumferential pericardial effusion present, which is large along the inferolateral and lateral segments of the LV and small anteriorly. There is no echocardiographic evidence of tamponade. Continue po lasix Strict I's and O's Sodium restriction Fluid restriction 1.5 L daily Daily weights Repeat TTE on 10/07/17 shows no evidence of tamponade. Cardiology will follow as an outpatient and repeat TTE Pericardial effusion may be related to rheumatologic disorder per pulmonary, see mgmt for acute right heart failye (5) Hypertension Current Visit: No Status: Chronic Assessment and plan: History of HTN. BP stable today 10/06/17 Not on anti-HTN medications Qualifiers: Hypertension type: essential hypertension Qualified Code(s): I10 - Essential (primary) hypertension (6) Shortness of breath Current Visit: Yes Status: Acute Assessment and plan: See above (7) PAF (paroxysmal atrial fibrillation) Current Visit: Yes Status: Acute Assessment and plan: Paroxysmal A. fib reported per patient Unable to find official diagnosis of A. fib on chart review No episodes of A. fib overnight patient on Xarelto in the past. Stopped in March 2017 Due to blood-tinged sputum Cardiology seeing in consultation-recommend continuing aspirin for now Continue telemetry (8) DVT prophylaxis Current Visit: Yes Status: Acute Assessment and plan: Continue SQ heparin (9) Volume overload Current Visit: Yes Status: Acute Assessment and plan: Presents with volume overload 2 week history of dyspnea, weight gain and bilateral lower extremity swelling 1+ pitting edema bilateral lower extremities on admission now generalized edema without pitting BNP elevated at 1364 Chest x-ray did not show any CHF or pleural effusions Continue to treat with IV diuretics TTE-LVEF 65%. Normal LV chamber size, wall thickness and function. Mild LVDD. Flattened interventricular septum suggestive of RV pressure-volume overload. Mild to moderately dilated right ventricle with mildly reduced function. Mild TR. Severe pulmonary hypertension. Estimated RVSP is 77-82 mmHg. There is a circumferential pericardial effusion present, which is large along the inferolateral and lateral segments of the LV and small anteriorly. There is no echocardiographic evidence of tamponade. See further planning above Qualifiers: Hypervolemia type: unspecified Qualified Code(s): E87.70 - Fluid overload, unspecified - Time Spent With Patient Total time spent is greater than 50% in coordination of care (as documented) at patient's floor/unit and/or counseling patient: - Subjective Interval history: No acute events overnight - Constitutional Vitals: Temp Pulse Resp BP Pulse Ox 97.6 F 86 18 97/62 95 10/09/17 07:09 10/09/17 07:09 10/09/17 07:39 10/09/17 07:09 10/09/17 07:39 General appearance: Present: mild distress, A&O X 3, answers questions appropriately - Head Head exam: Present: atraumatic, normocephalic - Eye Eye exam: Present: PERRL, conjuntiva pink, sclera anicteric Pupils: Present: PERRL - Neck Neck exam general surgery: Present: supple, trachea midline. Absent: lymphadenopathy - Respiratory Respiratory exam: Present: CTAB. Absent: accessory muscle use, rales, rhonchi, wheezes Additional comments: rales in lung bases - Cardiovascular Cardiovascular exam: Present: RRR, +S1, +S2. Absent: diastolic murmur, gallop, rubs, systolic murmur - GI/Abdominal GI/Abdominal exam: Present: normal bowel sounds, soft, no peritoneal signs. Absent: distended, tenderness - Extremities Exam Extremities exam: Present: warm, radial pulses palpable and symmetrical. Absent : calf tenderness, cyanotic, pedal edema - Neurological Exam Neurological exam: Present: CN II-XII intact, oriented X3, no focal deficits. Absent: pronater drift, facial droop, speech deficit - Skin Skin exam: Present: dry, intact Internal Medicine: Result - Labs CBC & Chem 7: 10/09/17 03:17 10/09/17 03:17 Labs: Short CBC 10/09/17 Range/Units 03:17 WBC 9.0 (4.3-11.1) K/mcL Hgb 15.4 D (11.5-15.4) g/dL Hct 48.7 H (35.3-44.9) % Plt Count 180 (140-400) K/mcL Neutrophils # 7.9 (1.6-8.9) K/mcL BMP 10/09/17 03:17 Sodium 134 L Potassium 4.5 D Chloride 105 Carbon Dioxide 22 L BUN 25 H Creatinine 0.81 Glucose 166 H Calcium 8.7 Urine 10/08/17 Range/Units 11:00 Urine Color Yellow (Yellow) Urine Clarity Clear (Clear) Urine pH 6.5 (5.0-8.0) pH Units Ur Specific [place] 1.015 (1.010-1.025) Urine Protein Negative (Neg-Trace) mg/dL Urine Glucose (UA) Normal (Normal) mg/dL - ABG Interpretation ABG results: ABG ABG pH 7.36 pH Units (7.32-7.45) 10/08/17 08:23 ABG pCO2 54 mmHg (35-45) H 10/08/17 08:23 ABG pO2 47 mmHg (85-104) L* 10/08/17 08:23 ABG O2 Saturation 80 % (95-98) L 10/08/17 08:23 PT/INR, D-dimer PT 11.3 Seconds (9.4-12.1) 10/07/17 05:49 - Impressions Impressions Chest X-Ray 10/08/17 07:55 IMPRESSION: Increasing ground-glass opacification in the left lower lung zone suspected to represent asymmetric edema. Developing pneumonitis cannot be excluded. D/ / Homer Gaming MD / Homer Gaming MD Interpreting Provider: Homer Gaming MD Consult Discharge Plan - Plan Referrals: Shruthi Plascencia CNP [Primary Care Provider] - (Please follow up as schedule...) Prescriptions: Furosemide [Lasix] 40 mg PO BID #60 tab predniSONE [PredniSONE] 40 mg PO DAILY #5 tablet
[2017-10-09] MEDS: predniSONE 20 MG TABLET PO SCH (07:58)
[2017-10-09] MEDS ORDERED: Acetaminophen 325 MG TABLET PO PRN (15:23)
[2017-10-10] MEDS: Ipratropium/Albuterol Neb 3 ML IH SCH ×2 (03:52→07:28)
[2017-10-10 04:43] LABS: Basophils % 0.2 %; Eosinophils % 0.3 %; Hematocrit 46.8 % (35.3-44.9); Hemoglobin 14.8 g/dL (11.5-15.4); Immature Granulocytes % 0.9 % (0-4); Lymphocytes # 2.6 K/mcL (0.6-4.6); Lymphocytes % 19.3 %; Mean Corpuscular HGB Conc 31.6 g/dL (31.6-35.5); Mean Corpuscular Volume 98.1 fL (83.0-100.0); Mean Platelet Volume 11.9 fL (9.4-12.4); Monocytes # 1.6 K/mcL (0.0-1.3); Monocytes % 11.9 %; Platelet Count 181 K/mcL (140-400); Red Blood Count 4.77 M/mcL (3.82-4.97); Red Cell Distribution Width 15.3 % (11.5-14.5); Segmented Neutrophils % 67.4 %
[2017-10-10 04:56] LABS: BUN/Creatinine Ratio 35 (6-26); Blood Urea Nitrogen 28 mg/dL (8-23); Calcium 8.4 mg/dL (8.6-10.3); Carbon Dioxide 25 mEq/L (23-29); Chloride 107 mEq/L (98-107); Glucose 103 mg/dL (70-105); Osmolality,Calculated 290 (280-300); Sodium 137 mEq/L (136-145); eGFR For African Americans > 60 (> 60); eGFR For Non-African Americans > 60 (> 60)
[2017-10-10] MEDS: *HR* Heparin 5,000 UNIT/ML VIAL SQ SCH (06:14)
[2017-10-10 07:25] VITALS: BP 112/71
[2017-10-10] MEDS: Budesonide/Formoterol 160/4.5 MDI IH SCH (07:28)
--- NOTE | 2017-10-10 07:51 | Discharge Summary ---
Orders not resulted at time of discharge: Pending orders 10/08/17 10:30 VITO IgG MITA rflx IFA Stat Anti-DNA DS, IgG with reflex Stat CCP IgG Stat Scleroderma Antibodies Panel Stat 10/10/17 09:00 US liver [US] Routine 10/11/17 04:00 Basic Metabolic Panel AM 0400 CBC [Complete Blood Count] [HEME] AM 0400 Date of Encounter: 10/10/17 Time of Encounter: 07:50 - Discharge Diagnosis (1) Acute right heart failure Priority: Primary Status: Acute Assessment and Plan: 62 year old female patient with pmh of COPD on 4L of oxygen at baseline, Lung cancer s/p lobectomy presented to the emergency room transferred from [place] emergency room after discovering on a CT scan small pericardial effusion about 2.2 cm. She initially presented to ER because she was feeling increased shortness of breath, with worsening swelling in her legs. Initial lab work showed negative troponin and a BNP 1364, d-dimer was elevated to 770. CT scan was ordered at that point showing no PE but a 2.2 cm pericardial effusion. She was admitted for acute COPD exacerbation, CHF exacerbation and pleural effusion. She was started on diuresis with IV lasix, nebs, steroids and antibiotics and cardiology was consulted. A 2D echo was done showing an LVEF 65 %. Normal LV chamber size, wall thickness and function. Mild LVDD. Flattened interventricular septum suggestive of RV pressure-volume overload. Mild to moderately dilated right ventricle with mildly reduced function. Mild TR. Severe pulmonary hypertension. Estimated RVSP is 77-82 mmHg. There is a circumferential pericardial effusion present, which is large along the inferolateral and lateral segments of the LV and small anteriorly. There was no echocardiographic evidence of tamponade. Cardiology reduced her dosing of lasix as they did not think she was in overt fluid overload. She was monitored and a TTE was repeated which again showed a dilated and hypokinetic RV but no evidence of tamponade. She began to have increasing oxygen requirements despite not being in fluid overload and without overtly being in COPD exacerbation. She was requiring 6L of oxygen to keep her sats above 93%. An ABG was done showing hypoxia and hypercapnia. Pulmonary was cnsulted and they think etiology of her worsening hypoxia is acute right heart failure which may be secondary to severe pulmonary hypertension with superimposed connective tissue disease. Work up has been sent for rheumatoid arthritis and connective tissue disease with scleroderma studies. Rheumatoid factor was elevated, and HIV studies are non reactive. Scleroderma studies, CCP IgG Anti dna ds and anti IFA studies are pending. Iv lasix has been discontinued and switched to PO. She is currently on weaning oral steroids and requiring 6L of oxygen. Per pulmonary patient needs transfer to a tertiary center for right heart catheterizzation and possible initiation of vasodilator/prostaglandin. [facility] has been contacted and she will be discharged to [facility].35minutes was sepnt discharging this patient (2) COPD exacerbation Priority: Secondary Status: Acute (3) Acute and chronic respiratory failure with hypoxia Priority: Secondary Status: Acute (4) Pericardial effusion Priority: Secondary Status: Acute (5) Hypertension Priority: Secondary Status: Chronic Qualifiers: Hypertension type: essential hypertension Qualified Code(s): I10 - Essential (primary) hypertension (6) Shortness of breath Priority: Secondary Status: Acute (7) PAF (paroxysmal atrial fibrillation) Priority: Secondary Status: Acute (8) DVT prophylaxis Priority: Secondary Status: Acute (9) Volume overload Priority: Secondary Status: Acute Qualifiers: Hypervolemia type: unspecified Qualified Code(s): E87.70 - Fluid overload, unspecified Hospital course: Ms. Novak is a 62 year old female - Time Spent with Patient Total time spent providing and/or coordinating discharge services: - Discharge Medications Prescriptions: Furosemide [Lasix] 40 mg PO BID #60 tab Home Medications: Loratadine [Allergy Relief] 10 mg PO DAILY 07/16/16 [History] Aspirin 81 mg PO DAILY 04/04/17 [History] Cyclobenzaprine [Flexeril] 10 mg PO TID 04/04/17 [History] Metoprolol [Lopressor] 12.5 mg PO BID 04/04/17 [History] Pravastatin Sodium [Pravachol] 20 mg PO DAILY 04/04/17 [History] Topiramate [Topamax] 100 mg PO BID 04/04/17 [History] Lisinopril [Zestril] 10 mg PO DAILY 10/04/17 [History] Albuterol Sulfate [Ventolin Hfa] 2 puff IH Q4H PRN 10/05/17 [History] Gabapentin [Neurontin] 400 mg PO TID 10/05/17 [History] Ibuprofen [Ibu] 800 mg PO TID 10/05/17 [History] Montelukast [Singulair] 10 mg PO DAILY 10/05/17 [History] Omeprazole [PriLOSEC] 20 mg PO DAILY 10/05/17 [History] Furosemide [Lasix] 40 mg PO BID #60 tab 10/08/17 [Rx] Allergies/Adverse Reactions: 3 Allergy/AdvReac Type Severity Reaction Status Date / Time acetaminophen AdvReac Hallucinati Verified 04/04/17 17:06 [From Darvocet-N] ng azithromycin [From Zithromax] AdvReac Rash Verified 04/07/17 07:54 duloxetine [From Cymbalta] AdvReac Nausea Verified 04/04/17 17:06 fentanyl AdvReac Vomiting Verified 04/04/17 17:06 propoxyphene AdvReac Hallucinati Verified 04/04/17 17:06 [From Darvocet-N] ng Sulfa (Sulfonamide AdvReac Rash Verified 04/04/17 17:06 Antibiotics) Tetracycline AdvReac Nausea Verified 04/04/17 17:06 Date of admission: 10/05/17 03:50 Primary care physician: Shruthi Plascencia Consults: 10/05/17 03:40 Consult to Nurse Navigator [CONS] Routine Comment: 10/05/17 06:08 Consult to Cardiology [CONS] Routine Comment: Consulting Provider: [facility] [place] Reason for Consult: Pericardial effusion, no heart strain. Call Completed: No 10/08/17 07:28 Consult to Office Agent [CONS] Routine Reason for SW Consult: Would like a home health aide to help with ADL's at home. She does not drive. 10/08/17 08:13 Consult to Pulmonology [CONS] Routine Consulting Provider: [facility] [place] Reason for Consult: acute hypoxic respiratory failure Call Completed: Yes - Constitutional Vitals: Temp Pulse Resp BP Pulse Ox 97.4 F L 89 18 112/71 93 10/10/17 07:24 10/10/17 07:24 10/10/17 07:30 10/10/17 07:24 10/10/17 07:30 General appearance: Present: mild distress, A&O X 3, answers questions appropriately - Head Head exam: Present: atraumatic, normocephalic - Eye Eye exam: Present: PERRL, conjuntiva pink, sclera anicteric Pupils: Present: PERRL - Neck Neck exam general surgery: Present: supple, trachea midline. Absent: lymphadenopathy - Respiratory Respiratory exam: Present: CTAB. Absent: accessory muscle use, rales, rhonchi, wheezes Additional comments: Rales in lung bases - Cardiovascular Cardiovascular exam: Present: RRR, +S1, +S2. Absent: diastolic murmur, gallop, rubs, systolic murmur - GI/Abdominal GI/Abdominal exam: Present: normal bowel sounds, soft, no peritoneal signs. Absent: distended, tenderness - Extremities Exam Extremities exam: Present: warm, radial pulses palpable and symmetrical. Absent : calf tenderness, cyanotic, pedal edema - Neurological Exam Neurological exam: Present: CN II-XII intact, oriented X3, no focal deficits. Absent: pronater drift, facial droop, speech deficit - Skin Skin exam: Present: dry, intact - Patient Status Disposition: Transfer Other - Discharge Instructions Follow Up With: Shruthi Plascencia, JUAN DAVID [Primary Care Provider] - (Please follow up as schedule...)
[2017-10-10] MEDS: predniSONE 20 MG TABLET PO SCH (08:53)
[2017-10-10] MEDS: Topiramate 100 MG TABLET PO SCH (08:53)
[2017-10-10] MEDS: Aspirin 81 MG TAB.CHEW PO SCH (08:53)
[2017-10-10] MEDS: Gabapentin 400 MG CAPSULE PO SCH (08:53)
[2017-10-10] MEDS: Furosemide 20 MG TABLET PO SCH (08:54)
[2017-10-10] MEDS: Loratadine 10 MG TABLET PO SCH (08:54)
[2017-10-10] MEDS: Ibuprofen 800 MG TABLET PO PRN (08:58)
[2017-10-10 10:37] LABS: ANA IgG by ELISA NONE DETECTED (None Detected)
[2017-10-12 08:19] LABS: ANA Titer by IFA <1:80 (<1:80); Anti Fibrillarin U3 RNP NEGATIVE (Negative); Anti PM Scl EIA NEGATIVE (Negative); Anti RNA Polymerase III 2 Units (0-19); Anti U1 RNP 0 AU/mL (0-40)
== END 2017-10-10 10:35 | disposition other institution (70) | DRG 194 ==
LOC: 2ANU
PROVIDERS: ADMIT Internal Medicine; ATTEND Internal Medicine